=== PATIENT | male | born 1950 | race Caucasian/White ===

== ENCOUNTER 2020-02-29 16:02 | Inpatient (IN) | payer MEDICARE, SELFPAY ==
[2020-02-29] VITALS (33 sets, daily range): BP systolic 104–193; BP diastolic 50–81; PULSE 70–90; RESP 14–18; TEMP 36.8; O2SAT 96–100
--- NOTE | ~2020-02-29 | XR_ITS ---
EXAMINATION: XR surgery orthopedic EXAM DATE: 03/01/2020 15:15 INDICATION: Right hip pinning. TECHNIQUE: Fluoroscopy used during XR surgery orthopedic performed by Dr. Rob Gupta MD. The DAP for this procedure was 0.23 mGym2. FINDINGS: There are 3 lag screws fixing a right hip transcervical neck fracture. Hardware is in expe cted position. Correlate with procedure note. IMPRESSION: Fluoroscopy used during right hip fracture fixation. Reviewed, dictated and finalized at location A. ER INSTALLER
--- NOTE | ~2020-02-29 | XR_ITS ---
EXAMINATION: XR chest 1V portable INDICATION: Hypertension TECHNIQUE: Portable AP chest at 1752 hours COMPARISON: None available FINDINGS: The lungs are hyperinflated but free of acute opacities. There is no pleural effusion or pn eumothorax. The heart size is upper limits of normal for technique. Median sternotomy wires are consi stent with prior cardiac surgery IMPRESSION: 1. No acute cardiopulmonary abnormality. Reviewed, dictated and finalized at location A. IN RESTORER
--- NOTE | ~2020-02-29 | XR_ITS ---
EXAMINATION: XR hip RT 2V w AP pelvis INDICATION: Right hip pain, initial encounter TECHNIQUE: AP view the pelvis and two views of the right hip are obtained. COMPARISON: None available FINDINGS: There is an acute, traumatic, closed, subcapital fracture of the right femoral neck. The fe moral heads are well-seated in their acetabula. No additional acute fracture is identified. Surgical clips are seen in the bilateral proximal lower extremities. IMPRESSION: 1. Acute subcapital right femoral neck fracture. Reviewed, dictated and finalized at location A. SPOOLER
--- NOTE | 2020-02-29 16:20 | ED.FALL ---
HPI - Fall General Chief Complaint: Fall Stated Complaint: FALL/HIP PAIN Time Seen by Provider: 02/29/20 16:05 Source: patient and family Mode of arrival: EMS Limitations: no limitations History of Present Illness HPI Narrative: 69-year-old male History of hypertension and high cholesterol and type 2 diabetes and peripheral vascular disease He was in his garage working on his 2011 motorcycle doing its winter maintenance when he tripped over a ramp and fell on his butt injuring his right hip Nothing else injured or hurt There were no antecedent symptoms which provoked the fall He was subsequently unable to get up and walk due to pain in his right hip, although the leg does not grossly appear to be deformed Related Data Home Medications Medication Instructions Recorded Confirmed aspirin 81 mg tablet,delayed 81 mg PO DAILY 01/31/19 02/29/20 release bimatoprost 0.01 % eye drops 1 drop EACH EYE DAILY 01/31/19 02/29/20 Allergies Allergy/AdvReac Type Severity Reaction Status Date / Time venom-honey bee Allergy Severe DIFFICULTY Verified 12/16/19 10:03 BREATHING venom-wasp Allergy Severe DIFFICULTY Verified 12/16/19 10:03 BREATHING Review of Systems Constitutional: Constitutional: Denies chills and Denies fever(s) Cardiovascular: Cardiovascular: Denies chest pain Respiratory: Respiratory: Denies cough and Denies dyspnea Gastrointestinal: Gastrointestinal: Denies diarrhea and Denies vomiting Musculoskeletal: Musculoskeletal: Reports no additional musculoskeletal complaints Neurologic: Denies dizziness, Denies headache(s) and Denies weakness Hematologic/Lymphatic: Hematologic/Lymphatic: Denies easy bleeding and Denies easy bruising PMFSH Family History Family History (Updated 11/13/13 @ 07:13 by DOCTOR UNKNOWN) Other Family history of heart disease in male family member before age 55 Social History Social History (Updated 12/16/19 @ 10:04 by Elma Vizcarra) Smoking packs per day: 2.5 Smoking cigarettes per day: 50.0 Years smoked: 35 Smoking pack-years: 87.50 Smoking status: Former smoker Tobacco type: cigarettes Second hand tobacco smoke exposure: No Smoking end date: 03/19/01 Alcohol intake: never Substance use: never Substance use type: does not use Gender identity (if verbalized by the patient): Male Exam Const: General: no acute distress and alert Nutritional Appearance: well nourished Orientation/consciousness: patient oriented x3 Limitations: no limitations HENMT: Head: normal to inspection, no contusions and no hematomas Neck: Neck: normal visual inspection Other: nt Resp: Effort & Inspection: normal respiratory effort and not labored GI: Other: Nontender pelvis Skin: General skin exam: normal color Neuro: General: patient oriented x3 and no focal motor deficits Speech: normal speech Extrem: Other: Right lower extremity is not shortened or externally rotated There is pain with internal or external rotation or flexion There is tenderness over the trochanter laterally and posteriorly Dorsalis pedis pulse cannot be located, posterior tibial pulses present Psych: Affect: normal affect Course Course Emergency Course: d/w hospitalist and with dr urbina and will send consult to [facility] for preop eval Vital Signs Vital signs: Vital Signs Temperature 36.8 C 02/29/20 16:05 Pulse Rate 90 02/29/20 16:05 Respiratory Rate 18 02/29/20 16:05 Blood Pressure 193/63 H 02/29/20 16:05 Pulse Oximetry 99 02/29/20 16:05 Temperature 36.8 C 02/29/20 16:05 Pulse Rate 90 02/29/20 16:05 Respiratory Rate 18 02/29/20 16:05 Blood Pressure 161/67 H 02/29/20 16:16 Pulse Oximetry 100 02/29/20 17:15 Discharge Plan Discharge Clinical Impression: Subcapital fracture of right hip Patient Disposition: Still a Patient Condition: Stable Prescriptions: No Action [place] 0.01 % drops 1
--- NOTE | 2020-02-29 17:27 | PC.NURSE ---
patient (+) right hip fracture. waiting for further orders from provider.
--- NOTE | 2020-02-29 17:47 | ECG_ITS ---
Measurements Intervals [place] Rate: 65 P: 65 NM: 153 QRS: 51 QRSD: 84 T: 33 QT: 364 QTc: 380 Interpretive Statements SINUS RHYTHM VENTRICULAR PREMATURE COMPLEX ANTEROSEPTAL INFARCT, AGE INDETERMINATE BASELINE ARTIFACT- I, III, AVR, AVL, AVF, V3 ABNORMAL ECG Electronically Signed On 03-01-2020 6:56:39 [facility] [place] by Dustin Turner D.O.
--- NOTE | 2020-02-29 17:59 | PC.NURSE ---
EKG done. in room. patient aware of hip fracture and plain for admission.
[2020-02-29] MEDS: MORPHINE SULFATE (*CRX) 4 MG/ML INJ IV PUSH ×2 (18:04→21:40)
[2020-02-29] MEDS: LACTATED RINGERS 1,000 ML 30 ML IV CONT (18:05)
--- NOTE | 2020-02-29 18:08 | PC.NURSE ---
instrument and controls technician in room for lab draw. meds given. in room. call light in reach.
[2020-02-29 18:18] LABS: Basophils Absolute Auto 0.1 K/mm3 (0.0-0.1); Basophils Percent Auto 0.6 % (0.2-1.2); Eosinophils Absolute Auto 0.1 K/mm3 (0-0.3); Eosinophils Percent Auto 0.9 % (0-4.4); Hematocrit 44.3 % (42.0-52.0); Hemoglobin 15.3 g/dL (14.0-18.0); Immature Granulocyte Absolute 0.07 K/mm3 (0.00-0.031); Immature Granulocyte Percent A 0.4 % (0-0.5); Lymphocytes Absolute Auto 1.36 K/mm3 (0.9-3.2); Lymphocytes Percent Auto 8.6 % (18.3-44.2); Mean Corpuscular HGB Conc 34.5 g/dl (32-36); Mean Corpuscular Hemoglobin 30.7 pg (26-34); Mean Platelet Volume 10.1 fl (7.4-10.4); Monocytes Absolute Auto 0.9 K/mm3 (0.1-0.6); Monocytes Percent Auto 5.5 % (2.6-8.5); Neutrophils Absolute Auto 13.3 K/mm3 (1.3-6.7); Platelet Count Result 188 k/mm3 (150-375); Red Blood Count 4.98 M/mm3 (4.6-6.20); Red Cell Distribution Width 12.3 % (11.5-14.5); White Blood Count 15.9 K/mm3 (4.5-10.0)
[2020-02-29 18:31] LABS: Prothrombin Time 13.7 Seconds (11.1-14.7)
[2020-02-29 18:32] LABS: Anion Gap 7 mmol/L (8-16); Blood Urea Nitrogen 33 mg/dL (9-20); Calcium 10.2 mg/dL (8.4-10.2); Carbon Dioxide 30 mmol/L (22-30); Chloride 101 mmol/L (98-107); Estimated CRCL calculation 41 ml/min; Estimated Glomerular Filt Rate 43; Glucose 129 mg/dL (75-110); Potassium 4.4 mmol/L (3.4-5.0); Sodium 138 mmol/L (137-145)
--- NOTE | 2020-02-29 18:55 | PC.NURSE ---
ok to feed patient. lunch boxes given to patient and with drinks. resting on stretcher. states that the morphine is wearing off . may want pain pills.
--- NOTE | 2020-02-29 20:11 | PC.NURSE ---
patient has bed assigned upstairs. SBAR sent.
--- NOTE | 2020-02-29 20:23 | PC.NURSE ---
report given to Renuka WHITE. patient's belongings sent home with his . ashu in [facility]. denies needs prior to transfer.
--- NOTE | 2020-02-29 20:31 | ADMGEN ---
This patient, Jamaal Romano, was admitted to Medical Room 344-01. Patient/family oriented to hospital policies and general routines including ID bracelet, bed and alarms, visiting hours, pain management, procedures, bathroom and other care routines, personal items, smoking policy, room service/diet, and visiting hours. Information on how to activate the Rapid Response Team has been discussed. Patient/Family are encouraged to report perceived risks to care and to ask questions if they do not understand what they are told or what they should do.
--- NOTE | 2020-02-29 21:30 | PM.IMHP ---
H&P: HPI History of Present Illness Date/Time: 02/29/20 20:30 Chief complaint: Right hip pain after a fall. Narrative: Jamaal Romano is a 69-year-old male with coronary artery disease status post CABG, chronic kidney disease stage 3, diabetes, and hypertension who presented to the emergency department earlier today via EMS from home for evaluation of right hip pain after a fall. Not long prior to arrival he was winterizing his motorcycle in the garage when he tripped over a piece of equipment, landing onto his right side. He was unable to get himself up due to significant pain in the right hip and he was brought to the emergency department where he was found to have a right subcapital femoral neck fracture. at this time he has resting pain of 1/10 but any effort to move that right hip causes pretty severe sharp shooting pain. He denies paresthesias, skin color, and temperature changes distal to the fracture site. He reiterates that it was purely a mechanical fall and denies antecedent symptoms to provoke the fall. Review of Systems Review of Systems: Narrative: Twelve systems were reviewed with pertinent positives and negatives as per HPI. No vertigo. No lightheadedness or dizziness. He denies recent cold and flu symptoms. No fever, chills, or sweats. No exertional chest pain or shortness of breath. He had an echocardiogram within the last couple of years with Dr. Bush. Last nuclear stress test was about a decade ago and was unremarkable. No syncope or near syncope. He denies nausea, vomiting, and diarrhea. Reports that his diabetes is well controlled. No nephropathy, neuropathy, or retinopathy. Reports maturing cataracts. Up to the bathroom maybe 1 to 2 times per evening. No dysuria. No history of venous thromboembolism. Except as documented, all other systems were reviewed and are negative. [facility] Past Medical History Medical History Chronic kidney disease, stage 3 Baseline creatinine is around 1.60. Colon polyps Coronary artery disease Status post 4 vessel bypass. Erectile dysfunction Glaucoma History of kidney stones Hyperlipidemia Hypertension Osteopenia Type 2 diabetes mellitus Surgical History Surgical History History of cholecystectomy History of four vessel coronary artery bypass graft (~2001) Family History Family History (Updated 02/29/20 @ 23:14 by Maritza Nguyen PA-C) Mother Myocardial infarction Father Sibling Congestive heart failure Other Family history of heart disease in male family member before age 55 Social History Social History (Updated 02/29/20 @ 23:17 by Maritza Nguyen PA-C) Social History: The patient lives in [place] with his . 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 Former smoker, up to 2.5 packs of cigarettes per day. He quit in 2001 when he had his coronary bypass. No alcohol or illicit substance abuse. He designates his Opal Romano as his surrogate decision maker and he wishes to be a full code. Smoking packs per day: 2.5 Smoking cigarettes per day: 50.0 Years smoked: 35 Smoking pack-years: 87.50 Smoking status: Former smoker Tobacco type: cigarettes Second hand tobacco smoke exposure: No Smoking end date: 03/19/01 Alcohol intake: former Substance use: never Substance use type: does not use Living arrangements: with family Occupation/Education: retired Gender identity (if verbalized by the patient): Male Sexual Orientation (if Verbalized by the Patient): Straight or Heterosexual Spiritual care concerns: No Agree to blood products: Yes Meds Home Medications and Allergies Home Medications Medication Instructions Recorded Confirmed Type aspirin 81 mg tablet,delayed 81 mg PO HS 01/31/19 02/29/20 History release bimatoprost 0.01 % eye drops 1 drop EACH EYE HS 01/31/19 02/29/20 Hi
[2020-02-29 22:02] LABS: Glucose Point of Care 187 (65-105)
[2020-03-01] VITALS (12 sets, daily range): BP systolic 140–180; BP diastolic 53–89; PULSE 70–104; RESP 12–16; TEMP 35.9–37.4; O2SAT 92–100
[2020-03-01] MEDS: ACETAMINOPHEN 325 MG TABLET 650 MG PO ×2 (01:04→06:12)
[2020-03-01] MEDS: MORPHINE SULFATE (*CRX) 4 MG/ML INJ IV PUSH (04:34)
[2020-03-01 06:15] LABS: Hematocrit 35.1 % (42.0-52.0); Mean Corpuscular HGB Conc 34.2 g/dl (32-36); Mean Corpuscular Hemoglobin 30.2 pg (26-34); Mean Corpuscular Volume 88.2 fl (80-100); Mean Platelet Volume 10.8 fl (7.4-10.4); Platelet Count Result 156 k/mm3 (150-375); Red Blood Count 3.98 M/mm3 (4.6-6.20); Red Cell Distribution Width 12.4 % (11.5-14.5); White Blood Count 10.7 K/mm3 (4.5-10.0)
[2020-03-01 06:30] LABS: Alanine Aminotransferase 37 U/L (4-50); Albumin Level 3.5 g/dL (3.5-5.1); Alkaline Phosphatase 60 U/L (38-126); Anion Gap 5 mmol/L (8-16); Aspartate Amino Transferase 53 U/L (17-59); Bilirubin,Total 1.4 mg/dL (0.2-1.3); Blood Urea Nitrogen 28 mg/dL (9-20); Calcium 8.9 mg/dL (8.4-10.2); Carbon Dioxide 30 mmol/L (22-30); Chloride 102 mmol/L (98-107); Estimated CRCL calculation 44 ml/min; Estimated Glomerular Filt Rate 47; Glucose 118 mg/dL (75-110); Sodium 137 mmol/L (137-145)
[2020-03-01 06:36] LABS: Hemoglobin A1C 6.4 % (<5.7)
[2020-03-01 07:08] LABS: Glucose Point of Care 108 (65-105)
--- NOTE | 2020-03-01 09:15 | PM.CNCAR ---
Assessment and Plan Assessment and plan (1) Preop cardiovascular exam: Code(s): Z01.810 - Encounter for preprocedural cardiovascular examination Status: Acute Assessment and Plan: patient can perform greater than 4 mets without any anginal or heart failure symptoms. He had a recent echocardiogram which showed a normal ejection fraction without significant valvular problems. He does not need preoperative ischemic evaluation at this point. He is at [id number] risk. (2) Coronary artery disease: Code(s): I25.10 - Atherosclerotic heart disease of [place] coronary artery without angina pectoris Status: Acute Assessment and Plan: as detailed above (3) HLD (hyperlipidemia): Code(s): E78.5 - Hyperlipidemia, unspecified Status: Acute Assessment and Plan: on statin and Zetia (4) Hypertensive heart disease without congestive heart failure: Code(s): I11.9 - Hypertensive heart disease without heart failure Status: Acute Assessment and Plan: normal EF. Blood pressure is mildly elevated History of Present Illness History of Present Illness Consult date/time: 03/01/20 09:15 Requesting physician: Natalio Marin MD Consult reason: pre-op evaluation and Other (Preop) Reason For Visit: Right hip pain after a fall. Narrative: date of service 03/01/2020 Reason for consultation coronary disease and preoperative evaluation History: Patient is a 69-year-old male who slipped and fell will work on his motorcycle and broke his right hip. Cardiology consultation was requested for preoperative risk evaluation. Patient does have a history of coronary disease and 4 vessel coronary bypass grafting in 2001. He was having no symptoms but was found have multivessel CAD on a routine stress test. This eventually led to a catheterization revealing significant disease and the aforementioned for also CABG. Patient did have an echocardiogram in October 2019 which revealed normal left ventricular size and function with ejection fraction of 68% without significant valvular problems. He did have mild MR and TR. He exercises routinely about 30 minutes a day on a treadmill at 2-1/2 miles an are and he has had no CHF or anginal symptoms. He denies any chest pain, shortness breath, syncope, presyncope, paroxysmal nocturnal dyspnea, orthopnea, edema or palpitations. Review of Systems Review of Systems: All systems reviewed & are unremarkable except as noted in HPI and below Constitutional: Constitutional: Denies weakness Eyes: Eyes: Denies blurry vision ENT: Reports Normal hearing present Cardiovascular: Cardiovascular: Denies chest pain Respiratory: Respiratory: Denies dyspnea Gastrointestinal: Gastrointestinal: Denies abdominal pain Genitourinary: Genitourinary: Denies dysuria Musculoskeletal: Musculoskeletal: Reports arthralgias Integumentary/Breasts: Skin/Breast: Denies dry skin Neurologic: Denies headache(s) and Denies numbness Psychiatric: Psychiatric: Denies anxiety and Denies confusion Endocrine: Endocrine: Denies excessive sweating and Denies fatigue Hematologic/Lymphatic: Hematologic/Lymphatic: Denies easy bleeding Allergic/Immunologic: Allergic/Immunologic: Denies GI upset with certain foods PMFSH Past Medical History Medical History Chronic kidney disease, stage 3 Baseline creatinine is around 1.60. Colon polyps Coronary artery disease Status post 4 vessel bypass. Erectile dysfunction Glaucoma History of kidney stones Hyperlipidemia Hypertension Osteopenia Type 2 diabetes mellitus Surgical History Surgical History History of cholecystectomy History of four vessel coronary artery bypass graft (~2001) Family History Family History Mother Myocardial infarction Decea
--- NOTE | 2020-03-01 10:15 | PM.CNOR ---
Assessment and Plan Assessment and plan (1) Subcapital fracture of right hip: Qualifiers: Encounter type: initial encounter Fracture type: closed Qualified Code(s): S72.011A - Unspecified intracapsular fracture of right femur, initial encounter for closed fracture Code(s): S72.011A - Unspecified intracapsular fracture of right femur, initial encounter for closed fracture Status: Acute Assessment and Plan: 69-year-old gentleman with multiple medical problems with fall at home yesterday, right hip femoral neck fracture. Medical comorbidities include diabetes, coronary artery disease status post bypass, osteoporosis, renal failure, peripheral arterial disease and claudication. History, physical exam and radiographs reviewed with the patient. Discussed the condition, nature, etiology and course of natural history with the patient. Treatment options including surgical and nonoperative treatment were reviewed. Risks and benefits of each as well as alternatives reviewed. The patient's questions were answered. Conservative treatment ice and Bed rest. surgical options reviewed including reduction and internal fixation with retention of the hip joint, hemiarthroplasty, total joint arthroplasty. Surgery, risks and benefits as well as outcomes reviewed in detail. Patient's questions were answered. He has declined a hip replacement or hemiarthroplasty at this time. He wants to proceed with internal fixation. He verbalizes understanding of the risk of nonunion or malunion, avascular necrosis and the need for future treatment or surgery. Discussed nonoperative and operative treatment options with the patient. Risks and benefits of each as well as alternatives were reviewed. All of the patient's questions were answered. The risks of surgery reviewed including but not limited to: Neurovascular damage, wound complication, infection, blood clot, pulmonary embolus, stroke, myocardial infarction, and anesthetic risks up to and including . Continued pain and possible dysfunction were explained. Specific risks of the procedure including later recurrence of deformity. No guarantees were offered. If hardware used, discussed risk of failure/ breakage and possible need for removal. If complications occur, the patient understands the need for further treatment, possible further surgery. Patient verbalizes understanding and wishes to proceed. PLAN: Reduction with internal fixation right hip fracture History of Present Illness HPI Consult date: 03/01/20 Requesting physician: Natalio Marin MD Consult reason: fracture ( Right hip) Chief complaint: Right hip pain after a fall. Narrative: 69-year-old gentleman admitted through the emergency room yesterday for right hip fracture. Patient at home in his garage when he slipped and fell onto his right side. Unable to bear weight. He complains of right hip pain. Denies numbness or tingling in the lower extremities. Denies head neck or back injury at the time of his fall. Denies loss of consciousness. He has no neck or back pain at this time. He has a history of previous right hip pain which according to him upon further workup was diagnosed with claudication. He was seen by vascular surgery and was told that he has poor blood flow to both legs. He has been trying to do exercise to help with that. Previous pain was over the lateral and posterior aspect of the hip and buttock. He denies any previous groin pain. Review of Systems Constitutional: Constitutional: Denies fever(s) Eyes: Eyes: Denies blurry vision ENT: Reports Normal hearing present Cardiovascular: Cardiovascular: Denies chest pain, Denies dyspnea, Denies orthopnea and Denies paroxysmal nocturnal dyspnea Respiratory: Respiratory: Denies dyspnea and Denies wheezing Gastrointestinal: Gastrointestinal: Denies abdominal pain Genitourinary: Genitourinary: Denies urinary urgency Musculoskeletal: Musculoske
--- NOTE | 2020-03-01 10:48 | WPDHPUPDATE1 ---
History and Physical Update Update Date/Time: 03/01/20 10:48 History and Physical has been reviewed, including an updated exam of the patient. There are NO changes in the patient's condition. Risks, benefits, and alternatives have been discussed and questions answered. Patient agrees to proceed with procedure.
--- NOTE | 2020-03-01 11:21 | PM.IMPN ---
Progress Note: A&P Assessment and Plan (1) Subcapital fracture of right hip: Qualifiers: Encounter type: initial encounter Fracture type: closed Qualified Code(s): S72.011A - Unspecified intracapsular fracture of right femur, initial encounter for closed fracture Code(s): S72.011A - Unspecified intracapsular fracture of right femur, initial encounter for closed fracture Status: Acute Assessment and Plan: Secondary to mechanical fall. Hip x-ray showed acute subcapital right femoral neck fracture. Pain is fairly well controlled at this time. Orthopedic surgery is following and plans for surgical repair today. Weight-bearing and DVT prophylaxis per Orthopedic surgery. PT and OT will be initiated following surgery. Will check vitamin-D level. Analgesics as needed for pain. (2) Leukocytosis: Code(s): D72.829 - Elevated white blood cell count, unspecified Status: Acute Assessment and Plan: [place] to be reactive secondary to trauma from fall. Significant improvement overnight and white count is essentially normalized at 10.7. No history to suggest underlying infection. Monitor CBC. (3) Chronic kidney disease, stage 3: Code(s): N18.30 - Chronic kidney disease, stage 3 unspecified Status: Inactive Assessment and Plan: Renal function is stable on review of previous labs. Creatinine is 1.5 today. Monitor renal function closely. Renally dose medications and avoid nephrotoxic agents. (4) Coronary artery disease: Code(s): I25.10 - Atherosclerotic heart disease of [place] coronary artery without angina pectoris Status: Acute Assessment and Plan: Patient has extensive cardiac history including CABG in 2001 and known multivessel CAD. He was evaluated by Cardiology for preop exam and felt the patient was a low to moderate risk for noncardiac surgery. His oral medications are on hold at this time and will be resumed as appropriate postoperatively (5) Type 2 diabetes mellitus: Code(s): E11.9 - Type 2 diabetes mellitus without complications Status: Inactive Assessment and Plan: A1c is 6.4. Blood sugars well controlled today. Continue Accu-Cheks a.c. HS, SSI, and hypoglycemia protocol Monitor blood sugar trends and adjust regimen as appropriate. His oral hypoglycemic agent is on hold at this time. (6) Hypertension: Code(s): I10 - Essential (primary) hypertension Status: Inactive Assessment and Plan: Blood pressure evaluated today and is stable at 140/53. Blood pressures have been just slightly elevated, likely secondary to pain. Lisinopril-hydrochlorothiazide is on hold at this time. IV hydralazine will be available as needed while NPO. Monitor blood pressure trends closely (7) Hyperlipidemia: Code(s): E78.5 - Hyperlipidemia, unspecified Status: Inactive Assessment and Plan: Atorvastatin and Zetia on hold at this time. Resume when clinically appropriate. Subjective Date/time seen: 03/01/20 11:21 Interval history: Date of service: 03/01/2020 Jamaal Romano is a 61-year-old male with history of CKD stage 3, CAD hyperlipidemia, hypertension, type 2 DM who is in follow-up for right hip fracture. He is doing well at this time. His pain is better controlled. He is currently rating his right hip pain as a 6/10 that he describes as a constant aching with occasional episodes of sharp shooting pain. He also note that his knee is a little uncomfortable just from the position that his leg has been in. He denies numbness or tingling in legs or feet. Otherwise he is doing well. He denies shortness of breath, cough chest pain, fever, chills, dizziness, lightheadedness, abdominal pain. He feels very thirsty but is NPO for surgery. He has been urinating without difficulty. Last bowel movement was yesterday. No additional concerns at this time. Review of Sys
[2020-03-01 11:31] LABS: Glucose Point of Care 130 (65-105)
[2020-03-01] MEDS: LACTATED RINGERS 1,000 ML 30 ML IV CONT (13:30)
--- NOTE | 2020-03-01 13:39 | WPDANESEPPF ---
Anes - Initial Pre Proc Eval Procedure: Operation Date: 03/01/20 14:30 Proposed Procedures p Right Hip Pinning - Rob Gupta MD Date/Time: 03/01/20 13:39 Surgeon: Raheem Rao MD Pre Op Diagnosis: Right hip pain after a fall. Patient Data Age: 69 Gender: M Height: 1.78 m Weight: 77.2 kg Last Vital Signs Temp 37.4 C 03/01/20 13:38 Pulse 70 03/01/20 13:38 Resp 16 03/01/20 13:38 BP 154/56 H 03/01/20 13:38 Pulse Ox 98 03/01/20 13:38 Allergies Allergy/AdvReac Type Severity Reaction Status Date / Time venom-honey bee Allergy Severe DIFFICULTY Verified 02/29/20 21:09 BREATHING venom-wasp Allergy Severe DIFFICULTY Verified 02/29/20 21:09 BREATHING Home Medications Medication Instructions Recorded Confirmed Type aspirin 81 mg tablet,delayed 81 mg PO HS 01/31/19 02/29/20 History release bimatoprost 0.01 % eye drops 1 drop EACH EYE HS 01/31/19 02/29/20 History metformin 500 mg tablet,extended 1,000 mg PO QPM #180 tablet 11/19/19 02/29/20 Rx release 24 hr atorvastatin 10 mg PO HS 02/29/20 02/29/20 History ezetimibe [Zetia] 10 mg PO HS 02/29/20 02/29/20 History lisinopril-hydrochlorothiazide 1 tablet PO HS 02/29/20 02/29/20 History Laboratory Tests 02/29/20 02/29/20 02/29/20 18:11 18:11 18:11 WBC 15.9 K/mm3 H K/mm3 (4.5-10.0) RBC 4.98 M/mm3 M/mm3 (4.6-6.20) Hgb 15.3 g/dL g/dL (14.0-18.0) Hct 44.3 % % (42.0-52.0) MCV 89.0 fl fl (80-100) MCH 30.7 pg pg (26-34) MCHC 34.5 g/dl g/dl (32-36) RDW 12.3 % % (11.5-14.5) Plt Count 188 k/mm3 k/mm3 (150-375) MPV 10.1 fl fl (7.4-10.4) Immature Gran % (Auto) 0.4 % % (0-0.5) Neut % (Auto) 84.0 % H % (45.5-73.1) Lymph % (Auto) 8.6 % L % (18.3-44.2) Piatt % (Auto) 5.5 % % (2.6-8.5) Eos % (Auto) 0.9 % % (0-4.4) Baso % (Auto) 0.6 % % (0.2-1.2) Lymph # (Auto) 1.36 K/mm3 K/mm3 (0.9-3.2) [place]att # (Auto) 0.9 K/mm3 H K/mm3 (0.1-0.6) Eos # (Auto) 0.1 K/mm3 K/mm3 (0-0.3) Baso # (Auto) 0.1 K/mm3 K/mm3 (0.0-0.1) Abs Immat Gran (auto) 0.07 K/mm3 H K/mm3 (0.00-0.031) Absolute Neuts (auto) 13.3 K/mm3 H K/mm3 (1.3-6.7) Absolute Nucleated RBC 0.0 K/mm3 K/mm3 (0.0-0.012) Nucleated RBC % 0.0 % % (0.0-0.2) PT 13.7 Seconds Seconds (11.1-14.7) INR 1.0 Sodium 138 mmol/L mmol/L (137-145) Potassium 4.4 mmol/L mmol/L (3.4-5.0) Chloride 101 mmol/L mmol/L (98-107) Carbon Dioxide 30 mmol/L mmol/L (22-30) Anion Gap 7 mmol/L L mmol/L (8-16) BUN 33 mg/dL H mg/dL (9-20) Creatinine 1.60 mg/dL H mg/dL (0.7-1.3) Estim Creat Clear Calc 41 ml/min ml/min Estimated GFR 43 L (59 - ) Glucose 129 mg/dL H mg/dL (75-110) POC Capillary Glucose Hemoglobin A1c Calcium 10.2 mg/dL mg/dL (8.4-10.2) Total Bilirubin AST ALT Alkaline Phosphatase Total Protein Albumin Blood Type Antibody Screen 02/29/20 02/29/20 03/01/20 18:11 21:56 05:22 WBC 10.7 K/mm3 H K/mm3 (4.5-10.0) RBC 3.98 M/mm3 L M/mm3 (4.6-6.20) Hgb 12.0 g/dL L D g/dL (14.0-18.0) Hct 35.1 % L % (42.0-52.0) MCV 88.2 fl fl (80-100) MCH 30.2 pg pg (26-34) MCHC 34.2 g/dl g/dl (32-36) RDW 12.4 % % (11.5-14.5) Plt Count 156 k/mm3 k/mm3 (150-375) MPV 10.8 fl H fl (7.4-10.4) Immature Gran % (Auto) Neut % (Auto) Lymph % (Auto) Piatt % (Auto) Eos % (Auto) Baso % (Auto) Lymph # (Au
[2020-03-01] MEDS: ACETAMINOPHEN 500 MG TABLET 1000 MG PO (13:41)
[2020-03-01] MEDS: TRANEXAMIC ACID 1,000MG/ISO100 1,000 MG/100 ML BAG 200 MG IVPB (13:54)
[2020-03-01] MEDS: ceFAZolin 2 GM/D5W 50 ML 2 GM/50 ML BAG IVPB (14:22)
[2020-03-01] MEDS: BUPIVACAINE/EPINEPHRINE 0.25% 10 ML VIAL INFILTRATE (14:48)
--- NOTE | 2020-03-01 15:35 | P.OP_ITS ---
Procedure Note - Detailed Date of procedure: 03/01/20 Pre-op diagnosis: Right hip pain after a fall. Right femoral neck fracture Post-op diagnosis: same Procedure performed: Closed reduction percutaneous pin fixation right femoral neck fracture Description of procedure: Indications: 69-year-old man witnessed fall onto right hip. Right hip femoral neck fracture. Patient discussed treatment options with surgery and non operative treatment including risks and benefits. They desire operative treatment. Option of hemiarthroplasty or total hip arthroplasty discussed in detail with the patient. He has declined hip replacement. He desires attempt at retention [place] hip joint. Patient consents for reduction with internal fixation. Implants used: Tameka 8.0 millimeter cannulated screw x3 What was done: Informed consent signed. Extremity marked in preoperative holding area. Patient received intravenous antibiotics. Brought to operating room and underwent general anesthetic by the Anesthesia Team. Positioned supine on the fracture table. Right leg placed into longitudinal traction. Left leg extended out of field. Image intensification brought in and confirm reduction of fracture. Right hip prepped and draped in usual sterile surgical fashion using ChloraPrep skin solution. Image intensification used to guide the starting position and a longitudinal incision made with 10 blade knife over the lateral proximal femur. Blunt dissection carried down to the lateral femur. Bleeding controlled with electrocautery. First guide pin placed in the inferior center position of the femoral neck and head. Confirmed with image intensification. Two subsequent pins placed superior and anterior and superior and posterior to the 1st pin to create an inverted triangle type pattern. Pins confirmed with image intensification. Length of screw measured, reaming performed. Appropriate size screw placed with good compression and fixation noted for all 3 pins. Guide pins removed. Final image intensification confirmed reduction of fracture and placement of hardware. Wound thoroughly irrigated with antibiotic solution. Fascia repaired with 2 Vicryl interrupted sutures. Subcutaneous tissue repaired with 3 0 Monocryl interrupted suture. Sterile dressing applied. Patient woken from anesthesia, extubated and returned to recovery room in stable condition. All sponge needle and instrument counts correct at the end of the case. Implants: Tameka 8.0 mm partially-threaded cannulated screw 100 mm, 95 mm, 95 mm length Anesthesia: GLMA Surgeon: Rob Gupta MD Combat Control Manager: 1st operations administrative assistant Estimated blood loss (mL): 20 Tourniquet time (min): 0 Drains: No Packing: No Pathology: none sent Complications: None Condition: stable Disposition: PACU
[2020-03-01 15:50] LABS: Glucose Point of Care 124 (65-105)
[2020-03-01] MEDS: fentaNYL CITRATE INJ (*CRX) 100 MCG/2 ML VIAL 25 MCG IV PUSH (16:19)
[2020-03-01] MEDS: metFORMIN HCL XR 500 MG TAB.SR.24H 1000 MG PO (17:13)
[2020-03-01] MEDS: DOCUSATE SODIUM 100 MG CAPSULE PO (17:14)
[2020-03-01 18:05] LABS: Glucose Point of Care 151 (65-105)
[2020-03-01] MEDS: HYDROcodone/acetaminophen (*CRX) 7.5-325 MG TABLET 1 TAB PO ×2 (18:49→21:51)
[2020-03-01] MEDS: hydrALAZINE HCL 20 MG/ML VIAL 10 MG IV PUSH (18:49)
[2020-03-01 20:07] LABS: Glucose Point of Care 199 (65-105)
[2020-03-01] MEDS: LATANOPROST 0.005% OP SOLN 2.5 ML BTL 1 DROP EACH EYE (20:54)
[2020-03-01] MEDS: ATORVASTATIN 10 MG TABLET PO (20:55)
[2020-03-01] MEDS: EZETIMIBE 10 MG TABLET PO (20:55)
[2020-03-01] MEDS: hydroCHLOROthiazide 12.5 MG CAPSULE PO (20:55)
[2020-03-01] MEDS: ASPIRIN 81 MG ENTERIC TABLET PO (20:55)
[2020-03-01] MEDS: lisinopriL 20 MG TABLET PO (20:55)
[2020-03-02 06:09] LABS: Hematocrit 36.2 % (42.0-52.0); Hemoglobin 12.4 g/dL (14.0-18.0); Mean Corpuscular HGB Conc 34.3 g/dl (32-36); Mean Corpuscular Hemoglobin 30.1 pg (26-34); Mean Corpuscular Volume 87.9 fl (80-100); Mean Platelet Volume 10.3 fl (7.4-10.4); Platelet Count Result 153 k/mm3 (150-375); Red Blood Count 4.12 M/mm3 (4.6-6.20); Red Cell Distribution Width 12.3 % (11.5-14.5); White Blood Count 12.8 K/mm3 (4.5-10.0)
[2020-03-02 06:27] LABS: Anion Gap 9 mmol/L (8-16); Blood Urea Nitrogen 24 mg/dL (9-20); Calcium 8.7 mg/dL (8.4-10.2); Carbon Dioxide 25 mmol/L (22-30); Chloride 102 mmol/L (98-107); Estimated CRCL calculation 44 ml/min; Estimated Glomerular Filt Rate 47; Glucose 158 mg/dL (75-110); Potassium 4.5 mmol/L (3.4-5.0); Sodium 136 mmol/L (137-145)
[2020-03-02] MEDS: HYDROcodone/acetaminophen (*CRX) 7.5-325 MG TABLET 1 TAB PO ×2 (06:28→17:33)
[2020-03-02 06:38] VITALS: BP 149/59; PULSE 83; RESP 14; TEMP 37.2; O2SAT 96
[2020-03-02 06:38] LABS: Glucose Point of Care 143 (65-105)
[2020-03-02 07:26] LABS: Vitamin D 25 Hydroxy 71.5 ng/mL
[2020-03-02] MEDS: DOCUSATE SODIUM 100 MG CAPSULE PO ×2 (09:18→17:34)
--- NOTE | 2020-03-02 09:39 | PM.PNCARD ---
Progress Note: A&P Assessment and Plan (1) Preop cardiovascular exam: Code(s): Z01.810 - Encounter for preprocedural cardiovascular examination Status: Acute Assessment and Plan: Post closed reduction percutaneous pin fixation right femoral neck fracture 03/01/2020 . (2) Coronary artery disease: Qualifiers: Coronary Disease-Associated Artery/Lesion type: [place] artery [place] vs. transplanted heart: [place] heart Associated angina: without angina Qualified Code(s): I25.10 - Atherosclerotic heart disease of [place] coronary artery without angina pectoris Code(s): I25.10 - Atherosclerotic heart disease of [place] coronary artery without angina pectoris Status: Acute Assessment and Plan: No chest discomfort or shortness of breath. Continue home medications (3) HLD (hyperlipidemia): Qualifiers: Hyperlipidemia type: unspecified Qualified Code(s): E78.5 - Hyperlipidemia, unspecified Code(s): E78.5 - Hyperlipidemia, unspecified Status: Acute Assessment and Plan: On statin and Zetia (4) Hypertensive heart disease without congestive heart failure: Code(s): I11.9 - Hypertensive heart disease without heart failure Status: Acute Assessment and Plan: Normal EF. Blood pressure is mildly elevated Medications as above Additional Plan No further cardiac recommendations Cardiology will sign off. Please do not hesitate to call if we can be of further assistance. Keep previously scheduled appointment with Dr Harrison Subjective Date/time seen: 03/02/20 09:39 Interval history: Follow up for: history of CAD/CABG, hyperlipidemia, hypertension Date of service: 03/02/2020 Subjective: Denies chest discomfort, shortness of breath, lightheadedness or nausea. Hip discomfort only with movement Review of Systems Constitutional: Constitutional: Denies excessive sweating, Denies fatigue, Denies headache(s) and Denies weakness Eyes: Eyes: Denies blurry vision ENT: Reports Normal hearing present and Denies headache(s) Cardiovascular: Cardiovascular: Denies chest pain and Denies dyspnea Respiratory: Respiratory: Denies dyspnea Gastrointestinal: Gastrointestinal: Denies abdominal pain Genitourinary: Genitourinary: Denies dysuria Musculoskeletal: Musculoskeletal: Reports arthralgias and Denies numbness Integumentary/Breasts: Skin/Breast: Denies dry skin Neurologic: Reports Normal hearing present, Denies headache(s), Denies numbness and Denies weakness Psychiatric: Psychiatric: Denies anxiety Endocrine: Endocrine: Denies excessive sweating and Denies fatigue Hematologic/Lymphatic: Hematologic/Lymphatic: Denies easy bleeding Allergic/Immunologic: Allergic/Immunologic: Denies GI upset with certain foods Exam Narrative: Exam Narrative: Alert and oriented, up in chair. No distress. Pleasant and appropriate Const: General: cooperative, comfortable and no acute distress Nutritional Appearance: average body habitus Orientation/consciousness: patient oriented x3 HENMT: General nose exam: Normal nares present Eyes: Sclera: sclerae normal Neck: Neck: supple Resp: Auscultation: clear to auscultation bilaterally Cardio: Rate: regular rate Rhythm: regular rhythm GI: GI Palp: Yes Soft to palpation Auscultation: normal bowel sounds Urinary Catheter: Urinary Catheter: patent and draining and urine clear Skin: General skin exam: normal color Neuro: Cranial nerves: Yes Normal hearing present Cognition (Neuro): normal cognition Speech: normal speech Extrem: General: no edema Psych: Appearance: grossly normal Mental Status: mental status grossly normal Speech and movement: Normal speech and movement present Affect: normal affect Attitude: cooperative Thought process: Normal thought proces
--- NOTE | 2020-03-02 10:51 | P.PNIM_ITS ---
Progress Note: A&P Assessment and Plan (1) Subcapital fracture of right hip: Qualifiers: Encounter type: initial encounter Fracture type: closed Qualified Code(s): S72.011A - Unspecified intracapsular fracture of right femur, initial encounter for closed fracture Code(s): S72.011A - Unspecified intracapsular fracture of right femur, initial encounter for closed fracture Status: Acute Assessment and Plan: Secondary to mechanical fall. Hip x-ray showed acute subcapital right femoral neck fracture. He is s/p closed reduction percutaneous pin fixation by Dr. Gupta. He is doing very well post-op and worked with PT and did well. * Weight-bearing and DVT prophylaxis per Orthopedic surgery. He is on xarelto. * Agree with PT/OT * Vitamin D level is sufficient * Analgesics as needed for pain. * Recommend DEXA outpatient per PCP (2) Leukocytosis: Code(s): D72.829 - Elevated white blood cell count, unspecified Status: Acute Assessment and Plan: [place] to be reactive secondary to trauma from fall. WBC has increased minimally to 12,800, likely leukemoid reaction due to surgery. There is no evidence of acute infection. * Monitor CBC. (3) Chronic kidney disease, stage 3: Code(s): N18.30 - Chronic kidney disease, stage 3 unspecified Status: Inactive Assessment and Plan: Renal function is stable on review of previous labs. Creatinine is 1.5. * Monitor renal function closely. Renally dose medications and avoid nephrotoxic agents. (4) Coronary artery disease: Qualifiers: Coronary Disease-Associated Artery/Lesion type: [place] artery [place] vs. transplanted heart: [place] heart Associated angina: without angina Qualified Code(s): I25.10 - Atherosclerotic heart disease of [place] coronary artery without angina pectoris Code(s): I25.10 - Atherosclerotic heart disease of [place] coronary artery without angina pectoris Status: Acute Assessment and Plan: Patient has extensive cardiac history including CABGx4 in 2001 and known multivessel CAD. * He was evaluated by Cardiology for preop exam and felt to be low to moderate risk for noncardiac surgery. * Continue ASA and atorvastatin (5) Type 2 diabetes mellitus: Code(s): E11.9 - Type 2 diabetes mellitus without complications Status: Inactive Assessment and Plan: A1c is 6.4. Blood sugars well controlled today. Will hold metformin while inpatient. * Continue Accu-Cheks a.c. HS, SSI, and hypoglycemia protocol * Monitor blood sugar trends and adjust regimen as appropriate. (6) Hypertension: Code(s): I10 - Essential (primary) hypertension Status: Inactive Assessment and Plan: Blood pressures are reasonably controlled today with most recent BP of 149/59. Prior BP elevations were likely secondary to pain. * Continue lisinopril-hydrochlorothiazide * Monitor blood pressure trends closely (7) Hyperlipidemia: Code(s): E78.5 - Hyperlipidemia, unspecified Status: Inactive Assessment and Plan: * Continue atorvastatin and Zetia. Subjective Date/time seen: 03/02/20 10:51 Mr. Romano is a 61 y.o. male with PMH significant for CKD stage 3, CAD s/p CABGx4, hyperlipidemia, hypertension, and T2DM who is seen in follow-up for right hip fracture s/p closed reduction and percutaneous pin fixation 03/01/[address] Gupta. He is doing very well post-operatively. His pain is
--- NOTE | 2020-03-02 10:51 | PM.IMPN ---
Progress Note: A&P Assessment and Plan (1) Subcapital fracture of right hip: Qualifiers: Encounter type: initial encounter Fracture type: closed Qualified Code(s): S72.011A - Unspecified intracapsular fracture of right femur, initial encounter for closed fracture Code(s): S72.011A - Unspecified intracapsular fracture of right femur, initial encounter for closed fracture Status: Acute Assessment and Plan: Secondary to mechanical fall. Hip x-ray showed acute subcapital right femoral neck fracture. He is s/p closed reduction percutaneous pin fixation by Dr. Gupta. He is doing very well post-op and worked with PT and did well. Weight-bearing and DVT prophylaxis per Orthopedic surgery. He is on xarelto. Agree with PT/OT Vitamin D level is sufficient Analgesics as needed for pain. Recommend DEXA outpatient per PCP (2) Leukocytosis: Code(s): D72.829 - Elevated white blood cell count, unspecified Status: Acute Assessment and Plan: [place] to be reactive secondary to trauma from fall. WBC has increased minimally to 12,800, likely leukemoid reaction due to surgery. There is no evidence of acute infection. Monitor CBC. (3) Chronic kidney disease, stage 3: Code(s): N18.30 - Chronic kidney disease, stage 3 unspecified Status: Inactive Assessment and Plan: Renal function is stable on review of previous labs. Creatinine is 1.5. Monitor renal function closely. Renally dose medications and avoid nephrotoxic agents. (4) Coronary artery disease: Qualifiers: Coronary Disease-Associated Artery/Lesion type: [place] artery [place] vs. transplanted heart: [place] heart Associated angina: without angina Qualified Code(s): I25.10 - Atherosclerotic heart disease of [place] coronary artery without angina pectoris Code(s): I25.10 - Atherosclerotic heart disease of [place] coronary artery without angina pectoris Status: Acute Assessment and Plan: Patient has extensive cardiac history including CABGx4 in 2001 and known multivessel CAD. He was evaluated by Cardiology for preop exam and felt to be low to moderate risk for noncardiac surgery. Continue ASA and atorvastatin (5) Type 2 diabetes mellitus: Code(s): E11.9 - Type 2 diabetes mellitus without complications Status: Inactive Assessment and Plan: A1c is 6.4. Blood sugars well controlled today. Will hold metformin while inpatient. Continue Accu-Cheks a.c. HS, SSI, and hypoglycemia protocol Monitor blood sugar trends and adjust regimen as appropriate. (6) Hypertension: Code(s): I10 - Essential (primary) hypertension Status: Inactive Assessment and Plan: Blood pressures are reasonably controlled today with most recent BP of 149/59. Prior BP elevations were likely secondary to pain. Continue lisinopril-hydrochlorothiazide Monitor blood pressure trends closely (7) Hyperlipidemia: Code(s): E78.5 - Hyperlipidemia, unspecified Status: Inactive Assessment and Plan: Continue atorvastatin and Zetia. Subjective Date/time seen: 03/02/20 10:51 Mr. Romano is a 61 y.o. male with PMH significant for CKD stage 3, CAD s/p CABGx4, hyperlipidemia, hypertension, and T2DM who is seen in follow-up for right hip fracture s/p closed reduction and percutaneous pin fixation 03/01/[address] Gupta. He is doing very well post-operatively. His pain is well-controlled with norco and he notes he is only having pain with movement. He has no numbness/paresthesias distal to operative site. He notes that ROM is good. He ambulated with PT today and sat in the chair and did very well. His santamaria was just removed. He has not voided yet. He is passing flatus but has not had any bowel movements yet. He has no complaints of chest pain, dyspnea, or cough. He is tolerating his diet well with no complaints of nausea, vomiting, o
--- NOTE | 2020-03-02 11:03 | WPDANESPN ---
Anes - Prog Note Post-Op Date/Time: 03/02/20 11:03 Cardiovascular status: normal Respiratory status: normal Airway patency: baseline Mental status: baseline Post-Op hydration status: normal Vital Signs: Last Vital Signs Temp 37.2 C 03/02/20 06:38 Pulse 83 03/02/20 06:38 Resp 14 03/02/20 06:38 BP 149/59 H 03/02/20 06:38 Pulse Ox 96 03/02/20 06:38 Pain Score (VAS): 0 I/O: Intake & Output 03/01/20 03/02/20 03/02/20 23:59 07:59 15:59 Intake Total 640 450 240 Output Total 180 Balance 460 450 240 Laboratory Tests 03/02/20 05:54 03/02/20 05:54 03/01/20 03/01/20 03/01/20 11:14 15:40 17:12 WBC RBC Hgb Hct MCV MCH MCHC RDW Plt Count MPV Sodium Potassium Chloride Carbon Dioxide Anion Gap BUN Creatinine Estim Creat Clear Calc Estimated GFR Glucose POC Capillary Glucose 130 H 124 H 151 H Calcium Vitamin D 25-Hydroxy 03/01/20 03/02/20 03/02/20 20:03 05:54 05:54 WBC 12.8 H RBC 4.12 L Hgb 12.4 L Hct 36.2 L MCV 87.9 MCH 30.1 MCHC 34.3 RDW 12.3 Plt Count 153 MPV 10.3 Sodium 136 L Potassium 4.5 Chloride 102 Carbon Dioxide 25 Anion Gap 9 BUN 24 H Creatinine 1.50 H Estim Creat Clear Calc 44 Estimated GFR 47 L Glucose 158 H POC Capillary Glucose 199 H Calcium 8.7 Vitamin D 25-Hydroxy 03/02/20 03/02/20 05:54 06:35 WBC RBC Hgb Hct MCV MCH MCHC RDW Plt Count MPV Sodium Potassium Chloride Carbon Dioxide Anion Gap BUN Creatinine Estim Creat Clear Calc Estimated GFR Glucose POC Capillary Glucose 143 H Calcium Vitamin D 25-Hydroxy 71.5 Post-procedural complaints: none Patient Feedback: Patient satisfied with anesthetic care.
--- NOTE | 2020-03-02 13:27 | PM.PNORT ---
Progress Note: A&P Assessment and Plan (1) Subcapital fracture of right hip: Qualifiers: Encounter type: subsequent encounter Fracture type: closed Fracture healing: with routine healing Qualified Code(s): S72.011D - Unspecified intracapsular fracture of right femur, subsequent encounter for closed fracture with routine healing Code(s): S72.011A - Unspecified intracapsular fracture of right femur, initial encounter for closed fracture Status: Acute Assessment and Plan: Postoperative day 1 right hip pinning. Patient is stable postoperatively. Pain well controlled. PT/ OT with toe-touch weight-bearing. Incentive spirometer. Disposition based on ability with therapy once medically stable. Subjective Subjective Date/Time Seen: 03/02/20 08:05 patient awake and alert. Complains of right hip pain but states better than pain before surgery. Denies numbness or tingling. No problems eating or breathing. Exam Const: General: No confusion Orientation/consciousness: patient oriented x3 and No confusion HENMT: Head: normal to inspection, normocephalic and atraumatic Eyes: Conjunctivae: conjunctivae normal Sclera: sclerae normal Neck: Neck: supple and nontender Chest: Chest palpation & inspection: normal inspection of the chest Resp: Effort & Inspection: normal respiratory effort and no audible wheezes Cardio: Rate: regular rate Rhythm: regular rhythm GI: GI Palp: No abdominal tenderness and Yes Soft to palpation : General: Yes deferred Skin: General skin exam: no rashes or lesions noted Neuro: General: patient oriented x3 and No confusion Extrem: General: capillary refill normal Right upper extremity: normal to inspection Left upper extremity: normal to inspection Right lower extremity: hip/thigh Details: tenderness Location: of the hip Location: laterally, swelling Location: at the hip ( mild) and other ( Right hip incision clean dry and intact. Muscle soft.), ankle ( able to actively flex and extend ankle) Details: no tenderness and foot Details: normal capillary refill, toes with normal ROM, vascular exam Details: normal capillary refill; dorsalis pedis pulse absent and posterior tibial pulse absent and motor-sensory exam Details: light-touch normal Location: in all toes; no tenderness Left lower extremity: normal to inspection, hip/thigh Details: no tenderness and no swelling, lower leg, ankle (no calf tenderness) Details: normal ROM; no tenderness and foot Details: normal capillary refill, vascular exam Details: normal capillary refill; dorsalis pedis pulse absent and posterior tivial pulse absent and motor-sensory exam light-touch normal in all toes Psych: Affect: normal affect Objective Data Vital Signs Vital Signs: Vital Signs - 24 hr 03/01/20 13:38 03/01/20 15:29 03/01/20 15:40 Temperature 99.3 F 97.8 F Pulse Rate 70 104 H 86 Respiratory Rate 16 14 14 Blood Pressure 154/56 H 180/84 H 166/79 H Pulse Oximetry 98 100 100 03/01/20 15:55 03/01/20 16:10 03/01/20 16:20 Temperature Pulse Rate 98 84 82 Respiratory Rate 15 15 12 Blood Pressure 170/78 H 155/74 H 163/77 H Pulse Oximetry 100 94 94 03/01/20 17:00 03/01/20 17:15 03/01/20 17:45 Temperature 96.7 F L 96.8 F L 96.7 F L Pulse Rate 76 81 73 Respiratory Rate 16 16 16 Blood Pressure 153/65 H 153/89 H 161/62 H Pulse Oximetry 92 95 95 03/01/20 19:05 03/01/20 20:49 03/02/20 06:38 Temperature 96.9 F L 97.8 F 98.9 F Pulse Rate 70 86 83 Respiratory Rate 16 14 14 Blood Pressure 177/64 H 167/65 H 149/59 H Pulse Oximetry 96 95 96 Intake/Output Intake/Output: Intake & Output 02/28/20 02/29/20 03/01/20 03/02/20 23:59 23:59 23:59 23:59 Intake Total 1000 790 930 Output Total 530 Balance 1000 260 930 Meds/Results Medications: Active Medications Generic Name Dose Route Start Last Admin Trade Name Freq PRN Reason Stop Dose Admin Acetaminophen 650 mg 02/29/20 17:56 03/01/20 0
[2020-03-02] MEDS: ACETAMINOPHEN 325 MG TABLET 650 MG PO (14:14)
[2020-03-02 14:26] LABS: Glucose Point of Care 167 (65-105)
[2020-03-02 15:15] VITALS: BP 148/66; PULSE 72; RESP 16; TEMP 36.8; O2SAT 97
[2020-03-02] MEDS: BENZOCAINE/MENTHOL (*BKC) 18 EA LOZENGE 1 LOZENGE PO (16:28)
[2020-03-02] MEDS: RIVAROXABAN 10 MG TABLET PO (17:34)
[2020-03-02 18:30] LABS: Glucose Point of Care 134 (65-105)
[2020-03-02 19:45] LABS: Glucose Point of Care 149 (65-105)
[2020-03-02 20:19] VITALS: BP 147/64; PULSE 81; RESP 14; TEMP 36.8; O2SAT 97
[2020-03-02] MEDS: hydroCHLOROthiazide 12.5 MG CAPSULE PO (20:22)
[2020-03-02] MEDS: LATANOPROST 0.005% OP SOLN 2.5 ML BTL 1 DROP EACH EYE (20:22)
[2020-03-02] MEDS: lisinopriL 20 MG TABLET PO (20:22)
[2020-03-02] MEDS: ATORVASTATIN 10 MG TABLET PO (20:22)
[2020-03-02] MEDS: ASPIRIN 81 MG ENTERIC TABLET PO (20:22)
[2020-03-02] MEDS: EZETIMIBE 10 MG TABLET PO (20:22)
[2020-03-03] MEDS: HYDROcodone/acetaminophen (*CRX) 7.5-325 MG TABLET 1 TAB PO ×4 (00:01→13:59)
[2020-03-03] MEDS: ACETAMINOPHEN 325 MG TABLET 650 MG PO (03:33)
[2020-03-03] MEDS: BENZOCAINE/MENTHOL (*BKC) 18 EA LOZENGE 1 LOZENGE PO (03:34)
[2020-03-03 05:40] VITALS: BP 136/62; PULSE 74; RESP 16; TEMP 36.7; O2SAT 96
[2020-03-03 06:01] LABS: Hematocrit 36.5 % (42.0-52.0); Hemoglobin 12.3 g/dL (14.0-18.0); Mean Corpuscular HGB Conc 33.7 g/dl (32-36); Mean Corpuscular Hemoglobin 30.4 pg (26-34); Mean Corpuscular Volume 90.1 fl (80-100); Mean Platelet Volume 10.4 fl (7.4-10.4); Platelet Count Result 143 k/mm3 (150-375); Red Blood Count 4.05 M/mm3 (4.6-6.20); Red Cell Distribution Width 12.6 % (11.5-14.5); White Blood Count 11.3 K/mm3 (4.5-10.0)
[2020-03-03 06:25] LABS: Anion Gap 8 mmol/L (8-16); Blood Urea Nitrogen 36 mg/dL (9-20); Calcium 9.1 mg/dL (8.4-10.2); Carbon Dioxide 30 mmol/L (22-30); Chloride 98 mmol/L (98-107); Estimated CRCL calculation 41 ml/min; Estimated Glomerular Filt Rate 43; Glucose 126 mg/dL (75-110); Magnesium 1.8 mg/dL (1.6-2.3); Potassium 4.3 mmol/L (3.4-5.0); Sodium 136 mmol/L (137-145)
[2020-03-03 06:51] LABS: Glucose Point of Care 120 (65-105)
[2020-03-03] MEDS: DOCUSATE SODIUM 100 MG CAPSULE PO (09:11)
[2020-03-03 11:26] LABS: Glucose Point of Care 140 (65-105)
--- NOTE | 2020-03-03 13:27 | PM.PNORT ---
Progress Note: A&P Assessment and Plan (1) Subcapital fracture of right hip: Qualifiers: Encounter type: subsequent encounter Fracture healing: with routine healing Fracture type: closed Qualified Code(s): S72.011D - Unspecified intracapsular fracture of right femur, subsequent encounter for closed fracture with routine healing Code(s): S72.011A - Unspecified intracapsular fracture of right femur, initial encounter for closed fracture Status: Acute Assessment and Plan: Postoperative day 2 right hip pinning. Patient is stable postoperatively. Pain well controlled. PT/ OT with toe-touch weight-bearing. Cleared for discharge home. Incentive spirometer. Follow up orthopedics approximately 4 weeks. Subjective Subjective Date/Time Seen: 03/03/20 12:30 Awake and alert. No new complaints. Right hip pain well controlled. Some pain with motion. Exam Const: General: No confusion Orientation/consciousness: patient oriented x3 and No confusion HENMT: Head: normal to inspection, normocephalic and atraumatic Eyes: Conjunctivae: conjunctivae normal Sclera: sclerae normal Neck: Neck: supple and nontender Chest: Chest palpation & inspection: normal inspection of the chest Resp: Effort & Inspection: normal respiratory effort and no audible wheezes Cardio: Rate: regular rate Rhythm: regular rhythm GI: GI Palp: No abdominal tenderness and Yes Soft to palpation : General: Yes deferred Skin: General skin exam: no rashes or lesions noted Neuro: General: patient oriented x3 and No confusion Extrem: General: capillary refill normal Right upper extremity: normal to inspection Left upper extremity: normal to inspection Right lower extremity: hip/thigh Details: tenderness Location: of the hip Location: laterally, swelling Location: at the hip ( mild) and other ( Right hip incision clean dry and intact. Muscle soft.), ankle ( able to actively flex and extend ankle) Details: no tenderness and foot Details: normal capillary refill, toes with normal ROM, vascular exam Details: normal capillary refill; dorsalis pedis pulse absent and posterior tibial pulse absent and motor-sensory exam Details: light-touch normal Location: in all toes; no tenderness Left lower extremity: normal to inspection, hip/thigh Details: no tenderness and no swelling, lower leg, ankle (no calf tenderness) Details: normal ROM; no tenderness and foot Details: normal capillary refill, vascular exam Details: normal capillary refill; dorsalis pedis pulse absent and posterior tivial pulse absent and motor-sensory exam light-touch normal in all toes Psych: Affect: normal affect Objective Data Vital Signs Vital Signs: Vital Signs - 24 hr 03/02/20 15:15 03/02/20 20:19 03/03/20 05:40 Temperature 98.2 F 98.2 F 98.1 F Pulse Rate 72 81 74 Respiratory Rate 16 14 16 Blood Pressure 148/66 H 147/64 H 136/62 Pulse Oximetry 97 97 96 Intake/Output Intake/Output: Intake & Output 02/29/20 03/01/20 03/02/20 03/03/20 23:59 23:59 23:59 23:59 Intake Total 4431 359 6372 740 Output Total 530 1930 Balance 3852 507 2333 -1190 Meds/Results Medications: Active Medications Generic Name Dose Route Start Last Admin Trade Name Freq PRN Reason Stop Dose Admin Acetaminophen 650 mg 02/29/20 17:56 03/03/20 03:33 Acetaminophen 325 Mg Tablet PO 650 mg Q4H PRN Administration Mild Pain (1-3) or Fever Hydrocodone Bitart/Acetaminophen 1 tab 03/01/20 16:25 03/03/20 10:29 Hydrocodone/Acetaminophen (*Crx) 7.5-325 Mg Tablet PO 1 tab Q3H PRN Administration Pain Rated 4-6 Aspirin 81 mg 03/01/20 21:00 03/02/20 20:22 Aspirin 81 Mg Enteric Tablet PO 81 mg HS UMU Administration Atorvastatin Calcium 10 mg 03/01/20 21:00 03/02/20 20:22 Atorvastatin 10 Mg Tablet PO 10 mg HS UMU Administration Benzocaine 1 lozenge 03/02/20 15:15 03/03/20 03:34 Benzocaine/Menthol (*Bkc) 18 Ea Lozenge
--- NOTE | 2020-03-03 14:51 | PM.DS ---
DS: Admitting Diagnosis Admitting Diagnosis Admitting Diagnosis: Right femoral neck fracture after mechanical fall DS: Discharge Diagnosis Discharge Diagnosis (1) Subcapital fracture of right hip: Qualifiers: Encounter type: subsequent encounter Fracture healing: with routine healing Fracture type: closed Qualified Code(s): S72.011D - Unspecified intracapsular fracture of right femur, subsequent encounter for closed fracture with routine healing Code(s): S72.011A - Unspecified intracapsular fracture of right femur, initial encounter for closed fracture Status: Acute Assessment and Plan: Discharge Summary (Date of service 03/03/20): Mr. Romano is a 61 y.o. male with PMH significant for CKD stage 3, CAD s/p CABGx4, hyperlipidemia, hypertension, and T2DM who presented to the emergency department 02/29/20 via EMS for the evaluation of right hip pain after sustaining a mechanical fall. Initial workup in the emergency deparment included plain films which showed acute subcapital right femoral neck fracture. He was seen by cardiology for pre-op risk stratification and felt to be low-moderate risk for surgery. He underwent closed reduction and percutaneous pin fixation of the right femoral neck fracture 03/01/[address] Gupta. He had no post-operative complications and progressed very well with PT/OT. He does have a hx of osteopenia and takes vitamin D and calcium supplement. Vitamin D level was sufficient but I did recommend he follow-up with his PCP outpatient for DEXA. He was felt stable for discharge home from an orthopedic surgery standpoint. He was voiding well following santamaria removal. Appetite was good and he was passing gas. Pain was well-controlled and he only endorsed pain with movement. He was discharged home in hemodynamically stable condition on the afternoon of 03/03/20. (2) Leukocytosis: Code(s): D72.829 - Elevated white blood cell count, unspecified Status: Acute Assessment and Plan: [place] to be reactive secondary to trauma from fall and post-op. There was no evidence of acute infection. (3) Chronic kidney disease, stage 3: Code(s): N18.30 - Chronic kidney disease, stage 3 unspecified Status: Acute Assessment and Plan: Renal function is stable on review of previous labs. Creatinine is 1.5. Plan for outpatient follow-up with his PCP which he already has scheduled. (4) Coronary artery disease: Qualifiers: Coronary Disease-Associated Artery/Lesion type: [place] artery [place] vs. transplanted heart: [place] heart Associated angina: without angina Qualified Code(s): I25.10 - Atherosclerotic heart disease of [place] coronary artery without angina pectoris Code(s): I25.10 - Atherosclerotic heart disease of [place] coronary artery without angina pectoris Status: Acute Assessment and Plan: Patient has extensive cardiac history including CABGx4 in 2001 and known multivessel CAD. He was seen by cardiology pre-operatively and felt to be low to moderate risk for non-cardiac surgery. ASA and atorvastatin were continued. He had no chest pain pre or post- operatively. (5) Type 2 diabetes mellitus: Code(s): E11.9 - Type 2 diabetes mellitus without complications Status: Inactive Assessment and Plan: A1c is 6.4. Blood sugars were well-controlled. Metformin was held while inpatient and resumed at discharge. (6) Hypertension: Code(s): I10 - Essential (primary) hypertension Status: Inactive Assessment and Plan: Blood pressures were reasonably controlled. He did have BP elevation initially, due to pain, but BP improved. Lisinopril-HCTZ was continued. (7) Hyperlipidemia: Code(s): E78.5 - Hyperlipidemia, unspecified Status: Inactive Assessment and Plan: Atorvastatin and Zetia were continued. DS: Summary Hospital Course Reason for hospitalization: Mechanical
== END 2020-03-03 16:27 | disposition home or self-care (01) | DRG 482 ==
LOC: ANHED 18:02 → ANH3MED 20:23
PROVIDERS: Orthopaedic Surgery; Physician Assistant; Admitting Provider Family Medicine; Emergency Provider Emergency Medicine; PCP Family Medicine; Visit Provider Internal Medicine
PROC: 0QS634Z Reposition Right Upper Femur with Internal Fixation Device, Percutaneous Approach (ICD-10-PCS; principal; 2020-03-01 14:30)
DX: S72.011A Unspecified intracapsular fracture of right femur, initial encounter for closed fracture (principal); W01.0XXA Fall on same level from slipping, tripping and stumbling without subsequent striking against object, initial encounter; D72.829 Elevated white blood cell count, unspecified; I12.9 Hypertensive chronic kidney disease with stage 1 through stage 4 chronic kidney disease, or unspecified chronic kidney disease; E11.22 Type 2 diabetes mellitus with diabetic chronic kidney disease; N18.30 Chronic kidney disease, stage 3 unspecified; E11.51 Type 2 diabetes mellitus with diabetic peripheral angiopathy without gangrene; I25.10 Atherosclerotic heart disease of native coronary artery without angina pectoris; E78.5 Hyperlipidemia, unspecified; H40.9 Unspecified glaucoma; M85.80 Other specified disorders of bone density and structure, unspecified site; Z95.1 Presence of aortocoronary bypass graft; Z87.442 Personal history of urinary calculi; Z90.49 Acquired absence of other specified parts of digestive tract; Z87.891 Personal history of nicotine dependence
CPT/HCPCS: 36415; 71045; 73502; 80048; 80053; 82306; 83036; 83735; 85025; 85027; 85610; 86850; 86900; 86901; 93005; 97110; 97116; 97161; 97165; 97530; 97535; 99285; A9270; C1713; C1769; J0360; J0690; J1100; J2250; J2270; J2370; J2405; J3010; J7120

== ENCOUNTER 2020-08-24 02:21 | Emergency (ER) | payer MEDICARE, SELFPAY ==
--- NOTE | ~2020-08-24 | CT_ITS ---
EXAMINATION: CT abdomen pelvis wo con EXAM DATE: 08/24/2020 03:10 INDICATION: Left flank pain. TECHNIQUE: Spiral CT of the abdomen and pelvis was performed without contrast. Axial, coronal and sag ittal images were reviewed. The dose-length product (DLP) for this examination was 312.27 mGy-cm. T he exposure was tailored according to patient size (auto mA exposure control), and iterative reconstr uction (ASIR) was used as additional dose reduction technique. There is no prior study for compariso n. FINDINGS: There is moderate right renal atrophy. Left inferior calyceal 3 mm stone. No ureteral stone s or hydronephrosis. The prostate is unremarkable. The bladder is unremarkable. The liver, spleen, adrenal glands and pancreas are unremarkable. There are cholecystectomy clips. There is no retrope ritoneal or pelvic lymphadenopathy. There is extensive scattered arterial sclerotic disease. The appendix is normal. There is extensive sigmoid predominant colonic diverticulosis. There is no a djacent inflammatory change to suggest diverticulitis. There is small sliding gastroesophageal hiatal hernia. There is expected amount of colonic stool. No free intraperitoneal gas. The heart is no rmal in size. There are no pericardial or pleural effusions. Mild basilar emphysema. There are no osteoblastic or osteolytic lesions identified. There are right hip lag screws. IMPRESSION: 1. Nonobstructing left calyceal stone. No acute findings. 2. Moderate right renal atrophy. 3. Extensive colonic diverticulosis. Reviewed, dictated and finalized at location A.
--- NOTE | ~2020-08-24 | XR_ITS ---
EXAMINATION: XR abdomen/kub 1V EXAM DATE: 08/24/2020 03:15 INDICATION: Kidney stone, left side pain x few hours. TECHNIQUE: Frontal projection of the upper abdomen, frontal projection lower abdomen/pelvis for inter pretation. Correlation is made to CT scan same day. FINDINGS: Possible identification of 3 mm left inferior calyceal stone. Nonobstructive bowel gas shawn marilyn. Cholecystectomy clips, right hip lag screws. There are mild bony degenerative changes. There is no organomegaly. Lung bases unremarkable. IMPRESSION: Possible identification small left nephrolithiasis. Reviewed, dictated and finalized at location A.
[2020-08-24 02:24] VITALS: BP 169/65; PULSE 53; RESP 18; TEMP 36.4; O2SAT 100
[2020-08-24 02:54] LABS: Basophils Absolute Auto 0.1 K/mm3 (0.0-0.1); Eosinophils Absolute Auto 0.7 K/mm3 (0-0.3); Eosinophils Percent Auto 5.9 % (0-4.4); Hematocrit 40.6 % (42.0-52.0); Hemoglobin 13.2 g/dL (14.0-18.0); Immature Granulocyte Absolute 0.02 K/mm3 (0.00-0.031); Immature Granulocyte Percent A 0.2 % (0-0.5); Lymphocytes Absolute Auto 3.39 K/mm3 (0.9-3.2); Lymphocytes Percent Auto 30.7 % (18.3-44.2); Mean Corpuscular HGB Conc 32.5 g/dl (32-36); Mean Corpuscular Hemoglobin 29.3 pg (26-34); Mean Platelet Volume 10.8 fl (7.4-10.4); Monocytes Absolute Auto 1.2 K/mm3 (0.1-0.6); Monocytes Percent Auto 10.7 % (2.6-8.5); Neutrophils Absolute Auto 5.7 K/mm3 (1.3-6.7); Neutrophils Percent Auto 51.5 % (45.5-73.1); Platelet Count Result 184 k/mm3 (150-375); Red Blood Count 4.51 M/mm3 (4.6-6.20)
[2020-08-24 02:57] LABS: Anion Gap 11 mmol/L (8-16); Blood Urea Nitrogen 24 mg/dL (9-20); Calcium 9.5 mg/dL (8.4-10.2); Carbon Dioxide 28 mmol/L (22-30); Chloride 105 mmol/L (98-107); Estimated CRCL calculation 39 ml/min; Estimated Glomerular Filt Rate 47; Glucose 180 mg/dL (75-110); Sodium 144 mmol/L (137-145)
[2020-08-24 03:03] LABS: Add Urine Microscopic? YES; Appearance Urine Clear (Clear); Bacteria Urine Trace /hpf; Bilirubin Urine Negative (Negative); Blood Urine Negative (Negative); Color Urine Yellow (Yellow); Glucose Urine UA Negative (Negative); Ketones Urine Negative (Negative); Leukocyte Esterase Ur Negative LEU/UL (Negative); Mucus Urine Rare /lpf; Nitrate Urine Negative (Negative); Protein Urine 1+ mg/dL (Negative); Specific Grav Ur 1.025 (1.001-1.035); Urobilinogen Urine Negative mg/dL (<2.0); WBC Urine 0-3 /hpf
[2020-08-24 03:23] VITALS: BP 146/73; PULSE 65; RESP 18; TEMP 36.6; O2SAT 100
[2020-08-24] MEDS: MORPHINE SULFATE (*CRX) 4 MG/ML INJ IV PUSH (03:26)
[2020-08-24] MEDS: SODIUM CHLORIDE 0.9% IV 1,000 ML 150 ML IV CONT (03:27)
[2020-08-24] MEDS: ONDANSETRON INJ 4 MG/2 ML VIAL IV PUSH (03:27)
--- NOTE | 2020-08-24 04:21 | ED.GENADULT ---
HPI - General Adult General Chief complaint: Back Pain/Injury Stated complaint: flank pain Time Seen by Provider: 08/24/20 02:47 Source: patient and family Mode of arrival: ambulatory History of Present Illness HPI narrative: 69-year-old with a history of CKD, hypertension, kidney stones here with a sudden onset of left flank pain. Patient states that the pain woke him up from sleep radiating from flank to groin area. Denied any fever or chills. However he states on his way to the hospital he is was feeling extremely nauseated and threw up. No history of blood in the urine. Onset (ago): hour(s) (1) Location: back and abdomen Severity: moderate Quality: sharp Pain Consistency: now resolved Exacerbating factors: none Associated symptoms: denies other symptoms Related Data Home Medications Medication Instructions Recorded Confirmed atorvastatin 10 mg PO HS 02/29/20 08/10/20 ezetimibe [Zetia] 10 mg PO HS 02/29/20 08/10/20 aspirin 325 mg tablet 325 mg PO DAILY tablet 03/22/20 08/10/20 calcium acetate PO 04/06/20 08/10/20 coenzyme Q10 [H2Q CoQ10] PO 04/06/20 08/10/20 krill oil PO 04/06/20 08/10/20 multivitamin 1 tablet PO DAILY 04/06/20 08/10/20 Allergies Allergy/AdvReac Type Severity Reaction Status Date / Time venom-honey bee Allergy Severe DIFFICULTY Verified 08/24/20 02:41 BREATHING venom-wasp Allergy Severe DIFFICULTY Verified 08/24/20 02:41 BREATHING Review of Systems Review of Systems: All systems reviewed & are unremarkable except as noted in HPI and below Constitutional: Constitutional: Reports no additional constitutional complaints Eyes: Eyes: Reports no additional eye complaints ENT: Reports system reviewed and no additional complaints, except as documented Cardiovascular: Cardiovascular: Reports no additional cardiovascular complaints Respiratory: Respiratory: Reports no additional respiratory complaints Gastrointestinal: Gastrointestinal: Reports as per HPI Musculoskeletal: Musculoskeletal: Reports no additional musculoskeletal complaints Integumentary/Breasts: Skin/Breast: Reports system reviewed and no additional complaints, except as docu PMFSH Past Medical History Medical History Chronic kidney disease, stage 3 Baseline creatinine is around 1.60. Colon polyps Coronary artery disease Status post 4 vessel bypass. Erectile dysfunction Glaucoma History of kidney stones Hyperlipidemia Hypertension Osteopenia Osteoporosis Status post closed fracture of right hip Type 2 diabetes mellitus Wears glasses Surgical History Surgical History History of cholecystectomy History of four vessel coronary artery bypass graft (~2001) Family History Family History Mother Myocardial infarction Father Sibling Congestive heart failure Other Diabetes mellitus Family history of heart disease in male family member before age 55 Heart disease Social History Social History Social History: The patient lives in [place] with his . 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 Former smoker, up to 2.5 packs of cigarettes per day. He quit in 2001 when he had his coronary bypass. No alcohol or illicit substance abuse. He designates his Opal Romano as his surrogate decision maker and he wishes to be a full code. Smoking packs per day: 2.5 Smoking cigarettes per day: 50.0 Years smoked: 20 Smoking pack-years: 50.00 Tobacco type: cigarettes Second hand tobacco smoke exposure: No Smoking end date: 03/19/01 Alcohol intake: former Substance use: never Substance use type: does not use Gender identity (if verbalized by the patient): Male Spiritual care concerns: No Agree to blood products: Yes Exam Narrative: Exam Narrative: GENERAL:
[2020-08-24 04:32] VITALS: BP 146/73; PULSE 65; RESP 18; TEMP 36.6; O2SAT 100
== END 2020-08-24 04:36 | disposition home or self-care (01) ==
PROVIDERS: Emergency Provider Family Medicine; PCP Family Medicine
DX: N20.0 Calculus of kidney (principal); E11.22 Type 2 diabetes mellitus with diabetic chronic kidney disease; I12.9 Hypertensive chronic kidney disease with stage 1 through stage 4 chronic kidney disease, or unspecified chronic kidney disease; N18.30 Chronic kidney disease, stage 3 unspecified; Z79.84 Long term (current) use of oral hypoglycemic drugs; Z87.442 Personal history of urinary calculi; Z86.010 Personal history of colon polyps; I25.10 Atherosclerotic heart disease of native coronary artery without angina pectoris; H40.9 Unspecified glaucoma; E78.5 Hyperlipidemia, unspecified; M85.80 Other specified disorders of bone density and structure, unspecified site; M81.0 Age-related osteoporosis without current pathological fracture; Z95.1 Presence of aortocoronary bypass graft; F17.210 Nicotine dependence, cigarettes, uncomplicated; K57.90 Diverticulosis of intestine, part unspecified, without perforation or abscess without bleeding
CPT/HCPCS: 36415; 74018; 74176; 80048; 81001; 85025; 96361; 96374; 96375; 99284; J2270; J2405; J7030

== ENCOUNTER 2020-11-29 00:54 | Day surgery (SDC) | payer MEDICARE, SELFPAY ==
[2020-11-18 13:53] VITALS: BMI 21.5
--- NOTE | 2020-11-26 14:27 | PM.HPGS ---
History of Present Illness History of Present Illness Consent: Risks, benefits, and alternatives have been discussed and questions answered. Patient agrees to proceed with procedure. Chief complaint: hx of colon polyps Narrative: Jamaal Romano is a 70 year old male here for colon cancer screening. He had polyps removed 5 years ago. Review of Systems Review of Systems: All systems reviewed & are unremarkable except as noted in HPI and below PMFSH Past Medical History Medical History Chronic kidney disease, stage 3 Baseline creatinine is around 1.60. Colon polyps Coronary artery disease Status post 4 vessel bypass. Erectile dysfunction Glaucoma History of kidney stones Hyperlipidemia Hypertension Osteopenia Osteoporosis Status post closed fracture of right hip Type 2 diabetes mellitus Wears glasses Surgical History Surgical History History of cholecystectomy History of four vessel coronary artery bypass graft (~2001) Family History Family History Mother Myocardial infarction Father Sibling Congestive heart failure Other Diabetes mellitus Family history of heart disease in male family member before age 55 Heart disease Social History Social History Social History: The patient lives in [place] with his . 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 Former smoker, up to 2.5 packs of cigarettes per day. He quit in 2001 when he had his coronary bypass. No alcohol or illicit substance abuse. He designates his Opal Romano as his surrogate decision maker and he wishes to be a full code. Smoking packs per day: 2.5 Smoking cigarettes per day: 50.0 Years smoked: 20 Smoking pack-years: 50.00 Tobacco type: cigarettes Second hand tobacco smoke exposure: No Smoking end date: 03/19/01 Alcohol intake: former Substance use: never Substance use type: does not use Living arrangements: with family Additional living arrangements comments: lives with spouse Gender identity (if verbalized by the patient): Male Sexual Orientation (if Verbalized by the Patient): Straight or Heterosexual Spiritual care concerns: No Agree to blood products: Yes Meds Home Medications and Allergies Home Medications Medication Instructions Recorded Confirmed Type atorvastatin 20 mg PO HS 02/29/20 11/18/20 History aspirin 325 mg tablet 325 mg PO DAILY tablet 03/22/20 11/18/20 History lisinopril 30 mg tablet 30 mg PO DAILY #90 tablet 03/22/20 11/18/20 Rx calcium acetate PO 04/06/20 08/10/20 History coenzyme Q10 [H2Q CoQ10] PO 04/06/20 08/10/20 History krill oil PO 04/06/20 08/10/20 History multivitamin 1 tablet PO DAILY 04/06/20 08/10/20 History metformin 500 mg tablet,extended 1,000 mg PO QPM #180 tablet 07/30/20 11/18/20 Rx release 24 hr Allergies Allergy/AdvReac Type Severity Reaction Status Date / Time venom-honey bee Allergy Severe DIFFICULTY Verified 11/29/20 06:55 BREATHING venom-wasp Allergy Severe DIFFICULTY Verified 11/29/20 06:55 BREATHING Exam Resp: Auscultation: clear to auscultation bilaterally Cardio: Rate: regular rate Rhythm: regular rhythm GI: GI Palp: Yes Soft to palpation and No Tenderness to palpation present (GI) Assessment and Plan Assessment and plan (1) Colon cancer screening: Code(s): Z12.11 - Encounter for screening for malignant neoplasm of colon Status: Acute Assessment and Plan: Colonoscopy with possible biopsy or polypectomy or cautery or injection of substances.
[2020-11-29 07:02] VITALS: BP 148/73; PULSE 77; RESP 16; TEMP 35.9; O2SAT 99; BMI 20.2
[2020-11-29] MEDS: LACTATED RINGERS 1,000 ML 150 ML IV CONT (07:07)
--- NOTE | 2020-11-29 07:17 | WPDANESEPPF ---
Anes - Initial Pre Proc Eval Procedure: Operation Date: 11/29/20 08:00 Proposed Procedures p Screening Colonoscopy - Edis Redmond MD Date/Time: 11/29/20 07:17 Surgeon: Edis Redmond MD Pre Op Diagnosis: hx of colon polyps Patient Data Age: 70 Gender: M Height: 1.78 m Weight: 64.1 kg Last Vital Signs Temp 35.9 C L 11/29/20 07:02 Pulse 77 11/29/20 07:02 Resp 16 11/29/20 07:02 BP 148/73 H 11/29/20 07:02 Pulse Ox 99 11/29/20 07:02 Allergies Allergy/AdvReac Type Severity Reaction Status Date / Time venom-honey bee Allergy Severe DIFFICULTY Verified 11/29/20 06:55 BREATHING venom-wasp Allergy Severe DIFFICULTY Verified 11/29/20 06:55 BREATHING Home Medications Medication Instructions Recorded Confirmed Type atorvastatin 20 mg PO HS 02/29/20 11/18/20 History aspirin 325 mg tablet 325 mg PO DAILY tablet 03/22/20 11/18/20 History lisinopril 30 mg tablet 30 mg PO DAILY #90 tablet 03/22/20 11/18/20 Rx calcium acetate PO 04/06/20 08/10/20 History coenzyme Q10 [H2Q CoQ10] PO 04/06/20 08/10/20 History krill oil PO 04/06/20 08/10/20 History multivitamin 1 tablet PO DAILY 04/06/20 08/10/20 History metformin 500 mg tablet,extended 1,000 mg PO QPM #180 tablet 07/30/20 11/18/20 Rx release 24 hr Patient hx anesthesia problems: none Family hx anesthesia problems: none PMFSH Past Medical History Medical History Chronic kidney disease, stage 3 Baseline creatinine is around 1.60. Colon polyps Coronary artery disease Status post 4 vessel bypass. 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 He quit in 2001 when he had his coronary bypass. No alcohol or illicit substance abuse. He designates his Opal Romano as his surrogate decision maker and he wishes to be a full code. Smoking packs per day: 2.5 Smoking cigarettes per day: 50.0 Years smoked: 20 Smoking pack-years: 50.00 Tobacco type: cigarettes Second hand tobacco smoke exposure: No Smoking end date: 03/19/01 Alcohol intake: former Substance use: never Substance use type: does not use Living arrangements: with family Additional living arrangements comments: lives with spouse Gender identity (if verbalized by the patient): Male Sexual Orientation (if Verbalized by the Patient): Straight or Heterosexual Spiritual care concerns: No Agree to blood products: Yes Anes - Eval Final PreProcedure Day of Procedure 11/29/20 07:17 Patient weight: normal Heart: regular rate and rhythm Lungs: clear to auscultation and normal air movement Airway: Mallampati scale class II Neurological: alert and oriented Last oral intake: >/= 8 hours ASA classification: III Emergent: no Anesthetic plan: proceed Anesthesia type and monitoring: general GIVS Informed Consent: The patient's anesthetic plan and its attendant risks and benefits were discussed with the patient/family/POA. Questions were solicited and answers provided to the satisfaction of the patient/family/POA.
[2020-11-29 07:18] LABS: Glucose Point of Care 140 mg/dl (65-105)
[2020-11-29 08:10] VITALS: BP 96/34; PULSE 58; RESP 18; O2SAT 99
[2020-11-29 08:20] VITALS: BP 94/51; PULSE 58; RESP 18; O2SAT 99
[2020-11-29 08:30] VITALS: BP 126/50; PULSE 57; RESP 19; O2SAT 100
== END 2020-11-29 08:55 | disposition home or self-care (01) ==
PROVIDERS: PCP Family Medicine; Visit Provider Internal Medicine Gastroenterology
PROC: 0DJD8ZZ Inspection of Lower Intestinal Tract, Via Natural or Artificial Opening Endoscopic (ICD-10-PCS; CPT 45378; principal; 2020-11-29 08:00)
DX: Z12.11 Encounter for screening for malignant neoplasm of colon (principal); Z86.010 Personal history of colon polyps; K57.30 Diverticulosis of large intestine without perforation or abscess without bleeding; I25.10 Atherosclerotic heart disease of native coronary artery without angina pectoris; I12.9 Hypertensive chronic kidney disease with stage 1 through stage 4 chronic kidney disease, or unspecified chronic kidney disease; N18.30 Chronic kidney disease, stage 3 unspecified; E11.22 Type 2 diabetes mellitus with diabetic chronic kidney disease; E78.5 Hyperlipidemia, unspecified; M85.80 Other specified disorders of bone density and structure, unspecified site; M81.0 Age-related osteoporosis without current pathological fracture; H40.9 Unspecified glaucoma; Z95.1 Presence of aortocoronary bypass graft; Z90.49 Acquired absence of other specified parts of digestive tract; Z87.442 Personal history of urinary calculi; Z87.891 Personal history of nicotine dependence
CPT/HCPCS: G0105; 82948; J2704; J7120

== ENCOUNTER 2020-12-27 14:18 | Outpatient (CLI) | payer MEDICARE, SELFPAY ==
--- NOTE | ~2020-12-27 | US_ITS ---
EXAMINATION: US carotid duplex BI DATE: 12/27/2020 14:57 INDICATION: Carotid bruit. TECHNIQUE: Grayscale, color Doppler, and pulsed Doppler images of the cervical carotid arteries were obtained. The degree of vessel stenosis is placed in one of the following categories: normal, <50%, 5 0-69%, >=70% but less than near-occlusion, near-occlusion, or total occlusion. Note that percent sten osis relative to normal distal artery lumen diameter is indirectly measured from velocity measurement s as described by Jason, et al. Radiology 2003; 229:340-346. COMPARISON: None. FINDINGS: RIGHT: The right common carotid artery (CCA) peak systolic velocity (PSV) is 69 cm/s. The right internal car otid artery (ICA) PSV is 210 cm/s. The right ICA end-diastolic velocity (EDV) is 54 cm/s. The right I CA/CCA PSV ratio is 3.1. Grayscale and color Doppler images yield an estimate of >=50% diameter reduc tion from plaque in the ICA. There is antegrade flow in the right vertebral artery. LEFT: The left CCA PSV is 54 cm/s. The left ICA PSV is 89 cm/s. The left ICA EDV is 34 cm/s. The left ICA/C CA PSV ratio is 1.7. Grayscale and color Doppler images yield an estimate of <50% diameter reduction from plaque in the ICA. There is antegrade flow in the left vertebral artery. IMPRESSION: 1. 50-69% stenosis in the right internal carotid artery. 2. <50% stenosis in the left internal carotid artery. Reviewed, dictated and finalized at location A.
== END 2020-12-27 14:19 | disposition home or self-care (01) ==
LOC: ANHIMG 14:22
PROVIDERS: PCP Family Medicine; Visit Provider Internal Medicine Cardiovascular Disease
DX: R09.89 Other specified symptoms and signs involving the circulatory and respiratory systems (principal); I65.23 Occlusion and stenosis of bilateral carotid arteries; I25.10 Atherosclerotic heart disease of native coronary artery without angina pectoris; E11.59 Type 2 diabetes mellitus with other circulatory complications
CPT/HCPCS: 93880

== ENCOUNTER 2021-09-21 11:22 | Outpatient (CLI) | payer MEDICARE, SELFPAY ==
[2021-09-21 12:05] LABS: Uric Acid 7.8 mg/dL (3.5-8.5)
== END 2021-09-21 11:23 | disposition home or self-care (01) ==
LOC: ANHLAB 11:24
PROVIDERS: PCP Family Medicine; Visit Provider Family Medicine
DX: M79.673 Pain in unspecified foot (principal)
CPT/HCPCS: 36415; 84550

== ENCOUNTER 2022-10-06 12:52 | Outpatient (CLI) | payer MEDICARE, SELFPAY ==
--- NOTE | ~2022-10-06 | XR_ITS ---
EXAMINATION: XR lg joint inject/asp w image DATE: 10/06/2022 13:51 INDICATION: Right hip arthritis. TECHNIQUE: A time-out was performed to verify the patient's name, date of , and procedure to b e performed. The procedure including the risks, benefits, and alternatives was discussed with the pat ient. Risks discussed included bleeding and infection. The patient understood the risks and agreed to proceed. The skin overlying the right hip joint was prepped and draped in usual sterile fashion. A nesthetic was administered with 1% lidocaine subcutaneously. A 22 G needle was advanced under fluoro scopic guidance into the joint. Subsequently, injectate consisting of 2 mL 0.5% bupivacaine and 1 mL 80 mg/mL Depo-Medrol was instilled. The needle was removed and the entry site was cleaned and dress ed. There were no immediate complications. Fluoroscopy exposure time was 0.1 minutes. The total numb er of images was 1. FINDINGS: Real-time fluoroscopy demonstrates the needle in the right hip joint. Patient's pain prior to procedure:4/10. Patient's pain following the procedure: 2/10. IMPRESSION: 1. Fluoroscopy guided right hip joint injection of local anesthetic and steroid with decrease in the patient's presenting pain. Reviewed, dictated and finalized at location A.
== END 2022-10-06 12:53 | disposition home or self-care (01) ==
PROVIDERS: PCP Family Medicine; Visit Provider Orthopaedic Surgery
DX: M16.11 Unilateral primary osteoarthritis, right hip (principal)
CPT/HCPCS: 20610; 77002; J1040

== ENCOUNTER 2022-10-26 11:14 | Emergency (ER) | payer MEDICARE, SELFPAY ==
--- NOTE | ~2022-10-26 | XR_ITS ---
EXAMINATION: XR pelvis 1-2V DATE: 10/26/2022 13:24 INDICATION: Right hip pain TECHNIQUE: An anteroposterior view of the pelvis was obtained. COMPARISON: 10/04/2022, 12/03/2020 and 04/06/2020 FINDINGS: Again seen is a subcapital fracture of the proximal right femur which is fixed with 3 cannulated lag screws. There has been increasing impaction and subsidence of the femoral head relative to the femora l neck with progressive backing out of the 3 lag screws along the lateral margin of the intratrochant inna right femur. For reference the surface of the head of the caudal-most screw which previously pro jected 1.5 cm beyond the lateral cortical margin now projects 2.5 cm beyond the lateral cortical ember in. The tips of the screws do not appear to upper check beyond the cortical margin on the single prov ided frontal projection. There appears be secondary leg length discrepancy with asymmetric proximal m igration of the right lesser trochanter when compared with the left. No other fractures identified. B ilateral hip joint spaces remain relatively preserved. Mild osteoarthritis at the bilateral sacral il iac joints. Several surgical clips along the medial aspect of the bilateral proximal thighs. IMPRESSION: 1. Progressive subsidence of an internally fixed subcapital fracture of the proximal right femur. Reviewed, dictated and finalized at location L. IMPRESSION: 1. Progressive subsidence of an internally fixed subcapital fracture of the pro ximal right femur.
[2022-10-26 11:31] VITALS: BP 150/56; PULSE 60; RESP 16; TEMP 36.3; O2SAT 99
[2022-10-26] MEDS: ACETAMINOPHEN 500 MG TABLET 1000 MG PO (13:29)
[2022-10-26] MEDS: LIDOCAINE 5% PATCH 1 PATCH TRANSDERM (13:31)
--- NOTE | 2022-10-26 14:58 | ED.LOWEXIN ---
HPI - Extremity Injury (Lower) General Chief Complaint: Extremity Injury, Lower Stated Complaint: R hip pain - history of hip replacement Time Seen by Provider: 10/26/22 12:17 History of Present Illness HPI Narrative: This is a 71-year-old male, with history of right femur ORIF, who presents to the emergency department complaining of right hip pain for the past 2 days. The pain is described as sharp, rated 10/10 and aggravated with lifting the right leg. The patient states he is able to walk, has not fallen and denies fever. Related Data Home Medications Medication Instructions Recorded Confirmed aspirin 325 mg tablet 325 mg PO DAILY 03/22/20 10/04/22 calcium acetate PO 04/06/20 10/04/22 coenzyme Q10 [H2Q CoQ10] PO 04/06/20 10/04/22 krill oil PO 04/06/20 10/04/22 multivitamin 1 tablet PO DAILY 04/06/20 10/04/22 Allergies Allergy/AdvReac Type Severity Reaction Status Date / Time venom-honey bee Allergy Severe DIFFICULTY Verified 10/26/22 11:14 BREATHING venom-wasp Allergy Severe DIFFICULTY Verified 10/26/22 11:14 BREATHING Review of Systems Review of Systems: CONSTITUTIONAL: Denies fever, chills, or sweats. CARDIOVASCULAR: Denies chest pain, palpitations, or edema. RESPIRATORY: Denies cough or dyspnea. GASTROINTESTINAL: Denies abdominal pain, nausea, vomiting, or diarrhea. GENITOURINARY: Denies dysuria or hematuria. SKIN: Denies rash or itching. MUSCULOSKELETAL: Right hip pain denies back pain, or myalgia. NEUROLOGIC: Denies headache, numbness, dizziness, or weakness. PSYCHIATRIC: Denies anxiety or depression. PENDING SALE TO [facility] Past Medical History Medical History Arthritis of right hip Bilateral carotid bruits Chronic kidney disease, stage 3 Baseline creatinine is around 1.60. Colon polyps Coronary artery disease Status post 4 vessel bypass. Erectile dysfunction Glaucoma History of kidney stones Hyperlipidemia Hypertension Osteopenia Osteoporosis Status post closed fracture of right hip Type 2 diabetes mellitus Wears glasses Surgical History Surgical History History of cholecystectomy History of four vessel coronary artery bypass graft (~2001) Family History Family History Mother Myocardial infarction Father Sibling Congestive heart failure Other Diabetes mellitus Family history of heart disease in male family member before age 55 Heart disease Social History Social History Social History: The patient lives in [place] with his . 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 Former smoker, up to 2.5 packs of cigarettes per day. He quit in 2001 when he had his coronary bypass. No alcohol or illicit substance abuse. He designates his Opal Romano as his surrogate decision maker and he wishes to be a full code. Smoking packs per day: 2.5 Smoking cigarettes per day: 50.0 Years smoked: 20 Smoking pack-years: 50.00 Smoking status: Former smoker Tobacco type: cigarettes Second hand tobacco smoke exposure: No Smoking end date: 03/19/01 Alcohol intake: former Substance use: never Substance use type: does not use Living arrangements: with family Additional living arrangements comments: lives with spouse Occupation/Education: retired Gender identity (if verbalized by the patient): Male Sexual Orientation (if Verbalized by the Patient): Straight or Heterosexual Spiritual care concerns: No Agree to blood products: Yes Exam Narrative: GENERAL: Well-developed, well-nourished, and in no acute distress. HEAD: Normocephalic, atraumatic. EYES: PERRLA and EOMI. CHEST: Clear to auscultation. No respiratory distress. No wheezes rales or rhonchi HEART: Regular rate and rhythm. No murmur heard. Normal peripheral pulses. ABDOMEN
== END 2022-10-26 15:15 | disposition home or self-care (01) ==
PROVIDERS: Emergency Provider Preventive Medicine Aerospace Medicine; PCP Family Medicine
DX: M25.551 Pain in right hip (principal); M16.11 Unilateral primary osteoarthritis, right hip; I12.9 Hypertensive chronic kidney disease with stage 1 through stage 4 chronic kidney disease, or unspecified chronic kidney disease; E11.22 Type 2 diabetes mellitus with diabetic chronic kidney disease; N18.30 Chronic kidney disease, stage 3 unspecified; I25.10 Atherosclerotic heart disease of native coronary artery without angina pectoris; E11.39 Type 2 diabetes mellitus with other diabetic ophthalmic complication; H42 Glaucoma in diseases classified elsewhere; E78.5 Hyperlipidemia, unspecified; M81.0 Age-related osteoporosis without current pathological fracture; M85.80 Other specified disorders of bone density and structure, unspecified site; Z95.1 Presence of aortocoronary bypass graft; Z86.010 Personal history of colon polyps; Z87.442 Personal history of urinary calculi; Z87.891 Personal history of nicotine dependence; Z90.49 Acquired absence of other specified parts of digestive tract; Z79.82 Long term (current) use of aspirin; Z79.84 Long term (current) use of oral hypoglycemic drugs
CPT/HCPCS: 72170; 99283; A9270

== ENCOUNTER 2023-01-05 09:50 | Outpatient (CLI) | payer MEDICARE, SELFPAY ==
--- NOTE | 2023-01-05 10:48 | ECG_ITS ---
Measurements Intervals [place] Rate: 52 P: 68 W[place]: 147 QRS: 46 QRSD: 118 T: 45 QT: 396 QTc: 371 Interpretive Statements SINUS BRADYCARDIA SEPTAL MYOCARDIAL INFARCTION [40+ ms Q WAVE IN V1/V2], OF INDETERMINATE AGE COMPARED TO ECG 02/29/2020 17:56:08 SINUS BRADYCARDIA NOW PRESENT Electronically Signed On 01-05-2023 13:35:36 CDT by Ashish Washington MD
[2023-01-05 11:19] LABS: Basophils Absolute Auto 0.1 K/mm3 (0.0-0.1); Basophils Percent Auto 1.1 % (0.2-1.2); Eosinophils Absolute Auto 0.6 K/mm3 (0-0.3); Eosinophils Percent Auto 5.7 % (0-4.4); Hematocrit 42.9 % (42.0-52.0); Immature Granulocyte Absolute 0.02 K/mm3 (0.00-0.031); Immature Granulocyte Percent A 0.2 % (0-0.5); Lymphocytes Absolute Auto 2.24 K/mm3 (0.9-3.2); Lymphocytes Percent Auto 23.3 % (18.3-44.2); Mean Corpuscular HGB Conc 32.6 g/dl (32-36); Mean Corpuscular Volume 92.1 fl (80-100); Mean Platelet Volume 10.2 fl (7.4-10.4); Monocytes Percent Auto 9.9 % (2.6-8.5); Neutrophils Absolute Auto 5.8 K/mm3 (1.3-6.7); Neutrophils Percent Auto 59.8 % (45.5-73.1); Platelet Count Result 201 k/mm3 (150-375); Red Blood Count 4.66 M/mm3 (4.6-6.20); White Blood Count 9.6 K/mm3 (4.5-10.0)
[2023-01-05 11:20] LABS: Appearance Urine Clear (Clear); Bilirubin Urine Negative (Negative); Blood Urine Negative (Negative); Color Urine Yellow (Yellow); Glucose Urine UA Negative (Negative); Ketones Urine Negative (Negative); Leukocyte Esterase Ur Negative LEU/UL (Negative); Nitrate Urine Negative (Negative); Protein Urine Negative (Negative); Specific Grav Ur 1.014 (1.001-1.035); Urobilinogen Urine 0.2 mg/dL (<2.0)
[2023-01-05 11:21] LABS: Add Urine Microscopic? NO
[2023-01-05 11:28] LABS: Urine Cotinine NEGATIVE
[2023-01-05 11:29] LABS: Albumin Level 4.7 g/dL (3.5-5.1); Anion Gap 9 mmol/L (8-16); Blood Urea Nitrogen 22 mg/dL (9-20); Calcium 10.1 mg/dL (8.4-10.2); Carbon Dioxide 30 mmol/L (22-30); Chloride 101 mmol/L (98-107); Estimated Glomerular Filt Rate 50; Glucose 122 mg/dL (65-110); INR 0.9; Potassium 4.6 mmol/L (3.4-5.0); Prothrombin Time 12.7 Seconds (11.1-14.7); Sodium 140 mmol/L (137-145)
[2023-01-05 11:30] LABS: Partial Thromboplastin Time 28.2 SECONDS (22.3-36.8)
[2023-01-05 12:26] LABS: Hemoglobin A1C 6.2 % (<5.7)
== END 2023-01-05 09:51 | disposition home or self-care (01) ==
LOC: ANHSURGERY 09:53
PROVIDERS: PCP Family Medicine; Visit Provider Orthopaedic Surgery
DX: Z01.818 Encounter for other preprocedural examination (principal); M87.051 Idiopathic aseptic necrosis of right femur
CPT/HCPCS: 80048; 80307; 81003; 82040; 83036; 85025; 85610; 85730; 86850; 86900; 86901; 87081; 93005

== ENCOUNTER 2023-01-18 11:00 | Inpatient (IN) | payer MEDICARE, SELFPAY ==
--- NOTE | 2023-01-05 09:56 | PC.NURSE ---
PRE-OP INSTRUCTIONS, PLEASE READ CAREFULLY Report to the Outpatient Waiting Room, entrance under the green pavilion located off [facility], at time _0600_ on date _01/18/23_. Planned Procedure Time: _0730_. PACK A SMALL OVERNIGHT BAG AND LEAVE IN THE CAR ALONG WITH YOUR WALKER Time changes happen often and if your time is changed the preop area will call you the afternoon before. - You and your visitor will be asked to self-screen and do not enter if you have any COVID symptoms. - A mask is optional within the hospital at this time. -VISITING HOURS 8AM-8PM Patients may have clear liquids (water, carbonated beverages, clear teas, apple juice) until 3 hours prior to surgery (0430 AM) with a maximum of 20 ounces. - No food from midnight until time of surgery Take the following medications with a SIP of water the morning of surgery: _TYLENOL IF NEEDED_ DO NOT STOP ANY OF YOUR OTHER PRESCRIPTION MEDICATIONS PRIOR TO SURGERY ?EXCEPT THE FOLLOWING Medications to discontinue per ANESTHESIA - _MULTIVITAMIN, KRILL OIL 3 DAYS PRIOR TO SURGERY, Date to take last dose 01/14/23_ Please no make-up, nail lithuanian, hairspray, perfume, deodorant, or body powder the day of surgery. No jewelry (including any body piercings) or valuables the day of surgery, leave them at home. Please take a shower or bath the night before, or the morning of, surgery with an antibacterial soap. Wear comfortable, loose fitting clothing. - Jewelry must be removed prior to entering the operating room. Rings and piercings that are not removed may be cut off. - The hospital will not accept responsibility for valuables. - Please leave all valuables, including medications, at home the day of surgery. If you are going home after surgery, a licensed stud driver must drive you home. - NO public transportation without another adult if you receive anesthesia. - We recommend that an adult stay with you for 24 hours following discharge. - We also recommend that you do not drive, make important decision, drink alcoholic beverages, or take any drugs that were not prescribed by your health care provider for at least 24 hours after your discharge time. Follow any additional instructions given to you from your surgeon. If you or anyone in your household have experienced Covid symptoms in the past week, please notify your surgeon or the nurse liaison at the phone number below for possible testing. Instructions given to _PATIENT_and asked if any additional questions and then verbalized understanding. Patient advised to call surgeon office or pre surgery nurse liaison [phone] if any additional questions.
[2023-01-05 10:22] VITALS: BP 142/54; PULSE 58; RESP 20; TEMP 36.7; O2SAT 100; BMI 21.1
--- NOTE | 2023-01-17 12:24 | PM.IMHP ---
H&P: HPI History of Present Illness Date/Time: 01/17/23 12:24 Chief Complaint: Right hip pain Narrative: 3 years status post right hip pinning from hip fracture. Has gone on to avascular necrosis of the femoral head and collapse of the femoral neck. Shortening. Pain with ambulation. Worse with motion of the hip. Has failed cortisone injection. Presents for operative treatment. Review of Systems Constitutional: Constitutional: Denies fever(s) Eyes: Eyes: Denies blurry vision ENT: Reports Normal hearing present Cardiovascular: Cardiovascular: Denies chest pain, Denies dyspnea, Denies orthopnea and Denies paroxysmal nocturnal dyspnea Respiratory: Respiratory: Denies dyspnea and Denies wheezing Gastrointestinal: Gastrointestinal: Denies abdominal pain Genitourinary: Genitourinary: Denies urinary urgency Musculoskeletal: Musculoskeletal: Reports as per HPI, Reports arthralgias ( Right hip) and Denies numbness Integumentary/Breasts: Skin/Breast: Denies changing lesions and Denies sores Neurologic: Reports Normal hearing present, Denies behavioral changes, Denies confusion, Denies numbness and Denies convulsions Psychiatric: Psychiatric: Denies behavioral changes, Denies confusion and Denies hallucinations Endocrine: Endocrine: Denies heat intolerance Hematologic/Lymphatic: Hematologic/Lymphatic: Denies easy bleeding Allergic/Immunologic: Allergic/Immunologic: Denies wheezing [facility] Past Medical History Medical History (Updated 01/17/23 @ 12:25 by Rob Gupta MD) Arthritis of right hip Avascular necrosis of right femoral head Bilateral carotid bruits Chronic kidney disease, stage 3 Baseline creatinine is around 1.60. Colon polyps Coronary artery disease Status post 4 vessel bypass. Erectile dysfunction Glaucoma History of kidney stones Hyperlipidemia Hypertension Osteopenia Osteoporosis Status post closed fracture of right hip Type 2 diabetes mellitus Wears glasses Surgical History Surgical History History of cholecystectomy History of four vessel coronary artery bypass graft (~2001) Family History Family History Mother Myocardial infarction Father Sibling Congestive heart failure Other Diabetes mellitus Family history of heart disease in male family member before age 55 Heart disease Social History Social History Social History: The patient lives in [place] with his . 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 Former smoker, up to 2.5 packs of cigarettes per day. He quit in 2001 when he had his coronary bypass. No alcohol or illicit substance abuse. He designates his Opal Romano as his surrogate decision maker and he wishes to be a full code. Smoking packs per day: 2.5 Smoking cigarettes per day: 50.0 Years smoked: 20 Smoking pack-years: 50.00 Smoking status: Former smoker Tobacco type: cigarettes Second hand tobacco smoke exposure: No Smoking end date: 03/19/01 Additional smoking assessment comments: PT DENIES ALL FORMS OF TOBACCO USE Alcohol intake: former Substance use: never Substance use type: does not use Living arrangements: with family Additional living arrangements comments: lives with spouse Occupation/Education: retired Gender identity (if verbalized by the patient): Male Sexual Orientation (if Verbalized by the Patient): Straight or Heterosexual Spiritual care concerns: No Agree to blood products: Yes Meds Home Medications and Allergies Home Medications Medication Instructions Recorded Confirmed Type calcium acetate 600 mg PO QAM 04/06/20 01/05/23 History coenzyme Q10 [H2Q CoQ10] 100 mg PO QAM 04/06/20 01/05/23 History krill oil 350 mg PO HS 04/06/20 01/05/23 History multivitamin 1 tablet PO QAM 04/06/20 01/05/23 History atorvastati
--- NOTE | 2023-01-17 14:08 | WPDANESEPPF ---
Anes - Initial Pre Proc Eval Procedure: Operation Date: 01/18/23 07:30 Proposed Procedures s Right Hip Hardware Removal, - Rob Gupta MD p Hemiarthroplasty Right Hip Proceed As Indicated - Rob Gupta MD Date/Time: 01/17/23 14:08 Surgeon: Rob Gupta MD Pre Op Diagnosis: right avascular necrosis Patient Data Age: 72 Gender: M Height: 1.78 m Weight: 66.7 kg Last Vital Signs Temp 98.1 F 01/05/23 10:22 Pulse 58 L 01/05/23 10:22 Resp 20 01/05/23 10:22 BP 142/54 H 01/05/23 10:22 Pulse Ox 100 01/05/23 10:22 O2 Del Method Room Air 01/05/23 10:22 Allergies Allergy/AdvReac Type Severity Reaction Status Date / Time venom-honey bee Allergy Severe DIFFICULTY Verified 01/05/23 10:13 BREATHING venom-wasp Allergy Severe DIFFICULTY Verified 01/05/23 10:13 BREATHING Home Medications Medication Instructions Recorded Confirmed Type calcium acetate 600 mg PO QAM 04/06/20 01/05/23 History coenzyme Q10 [H2Q CoQ10] 100 mg PO QAM 04/06/20 01/05/23 History krill oil 350 mg PO HS 04/06/20 01/05/23 History multivitamin 1 tablet PO QAM 04/06/20 01/05/23 History atorvastatin 20 mg tablet See Rx Instructions .Route 06/23/22 01/05/23 Rx .COMPLEX #100 tabs lisinopril 30 mg tablet 30 mg PO DAILY #90 tabs 10/05/22 01/05/23 Rx metformin 500 mg tablet,extended 1,000 mg PO QPM #180 tabs 10/05/22 01/05/23 Rx release 24 hr amlodipine 5 mg tablet See Rx Instructions .Route 12/25/22 01/05/23 Rx .COMPLEX #100 tabs aspirin 81 mg capsule 81 mg PO DAILY #1 cap 01/03/23 01/05/23 Rx acetaminophen 500 mg tablet 500 mg PO QID PRN Pain 01/05/23 01/05/23 History atorvastatin 20 mg tablet 20 mg PO HS 01/05/23 01/05/23 History bimatoprost 0.01 % eye drops 1 drp EACH EYE QPM 01/05/23 01/05/23 History ([place]) cholecalciferol (vitamin D3) 50 50 mcg PO DAILY 01/05/23 01/05/23 History mcg (2,000 unit) tablet Patient hx anesthesia problems: none Family hx anesthesia problems: none Results Review: All pre-operative results and documents have been reviewed as part of the pre-operative evaluation. [facility] Past Medical History Medical History (Updated 01/17/23 @ 12:25 by Rob Gupta MD) Arthritis of right hip Avascular necrosis of right femoral head Bilateral carotid bruits Chronic kidney disease, stage 3 Baseline creatinine is around 1.60. Colon polyps Coronary artery disease Status post 4 vessel bypass. Erectile dysfunction Glaucoma History of kidney stones Hyperlipidemia Hypertension Osteopenia Osteoporosis Status post closed fracture of right hip Type 2 diabetes mellitus Wears glasses Surgical History Surgical History History of cholecystectomy History of four vessel coronary artery bypass graft (~2001) Family History Family History Mother Myocardial infarction Father Sibling Congestive heart failure Other Diabetes mellitus Family history of heart disease in male family member before age 55 Heart disease Social History Social History Social History: The patient lives in [place] with his . 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 Former smoker, up to 2.5 packs of cigarettes per day. He quit in 2001 when he had his coronary bypass. No alcohol or illicit substance abuse. He designates his Opal Romano as his surrogate decision maker and he wishes to be a full code. Smoking packs per day: 2.5 Smoking cigarettes per day: 50.0 Years smoked: 20 Smoking pack-years: 50.00 Smoking status: Former smoker Tobacco type: cigarettes Second hand tobacco smoke exposure: No Smoking end date: 03/19/01 Additional smoking assessment comments: PT DENIES ALL FORMS OF TOBACCO USE Alcohol intake: former Substance use: never Substance use type: does not use Living arrange
[2023-01-18] VITALS (14 sets, daily range): BP systolic 111–156; BP diastolic 47–86; PULSE 69–115; RESP 12–16; TEMP 36.2–37.1; O2SAT 93–100
--- NOTE | ~2023-01-18 | XR_ITS ---
EXAMINATION: XR hip RT min 2V DATE: 01/18/2023 10:16 INDICATION: Right hip arthroplasty. Postop. TECHNIQUE: 2 views of right hip were obtained. COMPARISON: Right hip radiographs 11/14/2022 FINDINGS: There is a bipolar right hip hemiarthroplasty in near-anatomic alignment. No fracture. Ther e is gas in the soft tissues, consistent recent surgery. Surgical clips are noted in the thighs. IMPRESSION: 1. Bipolar right hip hemiarthroplasty in near-anatomic alignment. Reviewed, dictated and finalized at location E.
[2023-01-18 06:38] LABS: Glucose Point of Care 141 mg/dl (65-105)
[2023-01-18] MEDS: ACETAMINOPHEN 500 MG TABLET 1000 MG PO (06:40)
[2023-01-18] MEDS: TRANEXAMIC ACID 1,000MG/ISO100 1,000 MG/100 ML BAG 200 MG IVPB (07:00)
--- NOTE | 2023-01-18 07:10 | WPDHPUPDATE1 ---
History and Physical Update Update Date/Time: 01/18/23 07:10 History and Physical has been reviewed, including an updated exam of the patient. There are NO changes in the patient's condition. Risks, benefits, and alternatives have been discussed and questions answered. Patient agrees to proceed with procedure.
[2023-01-18] MEDS: LACTATED RINGERS 1,000 ML 30 ML IV CONT ×2 (07:30→09:54)
[2023-01-18] MEDS: ceFAZolin 2 GM/D5W 50 ML 2 GM/50 ML BAG IVPB (07:36)
[2023-01-18] MEDS: BUPIVACAINE/EPINEPHRINE 0.5% 50 ML VIAL INFILTRATE (08:30)
[2023-01-18 10:01] LABS: Glucose Point of Care 179 mg/dl (65-105)
--- NOTE | 2023-01-18 10:02 | W.PM.PROC2 ---
Procedure Note - Detailed Date of Procedure 01/18/23 Pre-op Diagnosis right hip avascular necrosis Post-op Diagnosis Same Procedure Performed Right hip removal of hardware, right hip hemiarthroplasty Surgeon Rob Gupta MD Flooring Grader 1st cardiovascular physician assistant Anesthesia General Indications 72-year-old who is 3 years status post right femoral neck hip fracture treated with percutaneous pinning. He has gone on to develop avascular necrosis of the head with collapse of the neck. Shortening on the right side of approximately 1 in. Presents for operative treatment. Findings Avascular necrosis with changes of the femoral head. Short scarred femoral neck. Acetabulum without arthritis or defect. Description of Procedure After informed consent was given, the operative extremity was marked in the preoperative holding area. The patient received intravenous antibiotics. Patient was brought to the operating room where they underwent a general anesthetic. Positioned in the lateral decubitus position nonop side down and the operative hip up. The right hip was then prepped and draped in the usual sterile surgical fashion using ChloraPrep skin solution. Time-out performed confirming the patient, side of the surgery, and the plan. A longitudinal incision was then made over the lateral side of the hip with the 10-blade knife. Hemostasis was controlled with electrocautery. Dissection was carried down through the fascia, which was incised in line with the skin incision. Subfascial retractor was placed. There were 3 screws present which were penetrating through the vastus lateralis. These were identified freed up from the soft tissue and removed with a screwdriver. Screws were passed off. Holes were curetted and irrigated. The abductor musculature was then elevated off the lateral side of the femur leaving a cuff of tissue for repair. The short abductor musculature was then elevated off the capsule and retention sutures were placed at the corner. The capsule was then incised in line with the femoral neck and T'd at the base. This allowed exposure of the fracture. The fracture hematoma was evacuated. Proximal femoral cutting guide was used to make a femoral neck cut at 2 cm above the lesser trochanter. This bone was removed with a rongeur. We then removed the head with a corkscrew. This was measured on the back table. Trialing of the acetabulum was done and a size 50 mm had excellent fit. The acetabulum was thoroughly irrigated and suctioned. Part of the fovea was ossified and was removed with cautery. The rest of the acetabulum was inspected and noted to be without degenerative changes. The proximal femur was then prepared. A posterior femoral retractor elevator was placed and a box cutting chisel was used to enter the femoral canal. We then used the canal finder. Broaching was then performed sequentially in 1 mm increments from a size 4 up to a size 14. This was noted to have excellent fit. We then trialed the hip. Excellent fit, stability with external and internal rotation at full extension and flexion of his hip and leg shuck were noted. The trial components were then removed. There was thorough irrigation with antibiotic solution of the proximal femur, acetabulum, and the wound. The femoral stem was then impacted into place. Good fit was noted. Trialing was once again performed and a neutral stem with a 50 mm acetabular cup had excellent stability and range of motion. The trial components were removed and the 28 mm head acetabular cup were then impacted onto the femoral stem. The hip was then reduced once again, taken through full range of motion and noted to be stable with the leg extended in full external and internal rotation with the hip flexed to 90 degrees with internal and external rotation. There was equal leg length noted. Wound was thoroughly irrigated with antibiotic solution. The capsule was repaired with #1 Vicryl interrupted suture. The
[2023-01-18] MEDS: fentaNYL CITRATE INJ (*CRX) 100 MCG/2 ML VIAL 25 MCG IV PUSH ×4 (10:17→10:49)
--- NOTE | 2023-01-18 11:10 | ADMGEN ---
This patient, Jamaal Romano, was admitted to Medical Room 261-01. Patient/family oriented to hospital policies and general routines including ID bracelet, bed and alarms, visiting hours, pain management, procedures, bathroom and other care routines, personal items, smoking policy, room service/diet, and visiting hours. Information on how to activate the Rapid Response Team has been discussed. Patient/Family are encouraged to report perceived risks to care and to ask questions if they do not understand what they are told or what they should do.
[2023-01-18 11:41] LABS: Glucose Point of Care 202 mg/dl (65-105)
--- NOTE | 2023-01-18 12:31 | PM.PNORT ---
Progress Note: A&P Assessment and Plan (1) Avascular necrosis of right femoral head: Code(s): M87.051 - Idiopathic aseptic necrosis of right femur Status: Acute Assessment and Plan: Postoperative check right hip hemiarthroplasty. Overall patient comfortable. Operative findings and treatment reviewed with patient and his . PT/OT with weight-bearing as tolerated. Diabetic diet. Appreciate hospitalist consultation for medical management of diabetes, hypertension, coronary artery disease. Pain control. DVT prophylaxis with aspirin. Plan for home with home health when medically stable. Subjective Subjective Date/Time Seen: 01/18/23 12:31 Post Op day: 0 Principal diagnosis: RT hip AVN Interval history: Postsurgical from right hip removal of hardware and hemiarthroplasty replacement for AVN. Patient states a little groggy. Mild pain right hip. Denies numbness and tingling. Exam Const: General: comfortable; No acute distress Resp: Effort & Inspection: normal respiratory effort and no audible wheezes Extrem: Right lower extremity: lower leg ( Negative Homans sign), ankle Details: normal ROM ( dorsiflexion and plantar flexion intact) and foot Details: vascular exam Details: dorsalis pedis pulse present and normal capillary refill, tendon exam Details: active flexion normal and active extension normal and motor-sensory exam Details: light-touch normal Location: in all toes; no edema Left lower extremity: normal to inspection, ankle Details: normal ROM and foot Details: vascular exam Details: dorsalis pedis pulse present and normal capillary refill and motor-sensory exam light-touch normal in all toes; no edema Other: Right hip dressing in place. Clean and dry. Objective Data Vital Signs Vital Signs: Vital Signs - 24 hr 01/18/23 07:14 01/18/23 09:54 01/18/23 10:10 Temperature 97.1 F L 97.7 F Pulse Rate 69 115 H 76 Respiratory Rate 14 16 14 Blood Pressure 137/57 L 150/66 H 146/70 H Pulse Oximetry 100 100 100 Oxygen Delivery Room Air Simple Face Mask Simple Face Mask Oxygen Flow Rate 8 8 01/18/23 10:25 01/18/23 10:40 01/18/23 10:55 Temperature Pulse Rate 72 69 77 Respiratory Rate 12 12 12 Blood Pressure 127/56 L 128/56 L 126/56 L Pulse Oximetry 97 96 94 Oxygen Delivery Room Air Room Air Room Air Oxygen Flow Rate 01/18/23 11:10 01/18/23 11:25 01/18/23 11:55 Temperature 97.3 F L 97.1 F L 97.3 F L Pulse Rate 75 74 77 Respiratory Rate 12 12 13 Blood Pressure 135/53 L 122/47 L 111/50 L Pulse Oximetry 95 94 93 Oxygen Delivery Oxygen Flow Rate Intake/Output Intake/Output: Intake & Output 01/15/23 01/16/23 01/17/23 01/18/23 23:59 23:59 23:59 23:59 Intake Total 450 Balance 450 Meds/Results Medications: Active Medications Generic Name Dose Route Start Last Admin Trade Name Freq PRN Reason Stop Dose Admin Acetaminophen 650 mg 01/18/23 11:00 Acetaminophen 325 Mg Tablet PO Q6H PRN Mild Pain (1-3) or Fever Hydrocodone Bitart/Acetaminophen 1 tab 01/18/23 11:00 Hydrocodone/Acetaminophen (*Crx) 5-325 Mg Tablet PO Q3H PRN Pain Rated 4-6 Al Hydrox/Mg Hydrox/Simethicone 30 ml 01/18/23 11:00 Mag Hydrox/Al Hydrox/Simeth 30 Ml Udc PO Q6H PRN Indigestion Amlodipine Besylate 5 mg 01/18/23 11:00 Amlodipine Besylate 5 Mg Tablet PO DAILY UMU Aspirin 81 mg 01/19/23 08:00 Aspirin 81 Mg Chewable Tablet PO DAILY@0800 UMU Atorvastatin Calcium 20 mg 01/18/23 21:00 Atorvastatin 20 Mg Tablet PO HS UMU Calcium Acetate 667 mg 01/19/23 09:00 Calcium Acetate 667 Mg Tablet PO QAM UMU Famotidine 20 mg 01/18/23 21:00 Famotidine 20 Mg Tablet PO Q12HR UMU Sodium Chloride 1,000 mls @ 75 mls/hr 01/18/23 11:00 Normal Saline Iv IV CONT .[id number] UMU Cefazolin Sodium 1 gm in 50 mls @ 100 mls/hr 01/18/23 16:00 Ancef 1 Gm/Ns 50 Ml IVPB 01/19
--- NOTE | 2023-01-18 13:22 | PM.IMCN ---
Assessment and Plan Assessment and plan (1) Type 2 diabetes mellitus: Qualifiers: Diabetes mellitus coutierier insulin use: without coutierier use Diabetes mellitus complication status: without complication Qualified Code(s): E11.9 - Type 2 diabetes mellitus without complications Code(s): E11.9 - Type 2 diabetes mellitus without complications Status: Acute (2) Hypertension: Qualifiers: Hypertension type: primary hypertension Qualified Code(s): I10 - Essential (primary) hypertension Code(s): I10 - Essential (primary) hypertension Status: Acute (3) S/P hip hemiarthroplasty: Code(s): Z96.649 - Presence of unspecified artificial hip joint Status: Acute Plan Problem List 1. diabetes, type 2 hypoglycemia protocol POC blood glucose ACHS correct regimen ordered - low dose TIDWM and HS A1C 6.2 on 01/05/23 continue home metformin 2. hypertension continue home amlodipine, lisinopril monitor BP 3. s/p hip hemiarthroplasty, right no immediate post-op complications ortho managing santamaria in place PT/OT eval and treat monitor labs PRN pain, nausea, and bowel regimen meds in place likely d/c tomorrow barring complications Chronic Conditions - HLD: continue atorvastatin - CAD: continue ASA - Glaucoma: Continue latanoprost eye drops - supplements: continue vitamin-D, calcium, multivitamin Diet: diabetic GI Prophylaxis: not indicated DVT Prophylaxis: SCDs, pharm not indicated due to postop status Lines: pIV Code Status: Full Code, confirmed on 01/18/2023 with at bedside. HPI Date of Consult Consult date: 01/18/23 Requesting Physician: Rob Gupta MD Primary Care Provider: Nilson Flynn MD Consult Narrative Reason for consult: Med Managment Narrative: Jamaal Romano is a 72 year old male presented here for a right hip hemiarthroplasty. Patient presented here for a right hip hemiarthroplasty status post right hip fixation with subsequent avascular necrosis of the femoral head with degenerative changes. Patient originally injured right hip 3 years ago. States he was working on a motorcycle when he tripped, fell and fractured his R hip. Original surgery performed here. States that he initially had some pain with lateral movement of his right leg post-surgery but discomfort was manageable. However this past July he was replacing his deck and he believes he exacerbated the joint. Pain then became more constant v. intermittent previously. Patient failed cortisone injections and self-directed exercises/therapy. Has had to use a cane intermittently over the past few years, now constant for the past 3-4 weeks. Patient elected for surgical management. Patient otherwise states that he feels well. No issues with medications or comorbidities per patient report. States his last A1C over the summer was 6.6. Diabetes is managed by his primary. Currently on oral metformin without complications or bothersome side effects. No other concerns or complaints. Review of Systems Review of Systems: All systems reviewed & are unremarkable except as noted in HPI and below PMFSH Past Medical History Medical History Arthritis of right hip Avascular necrosis of right femoral head Bilateral carotid bruits Chronic kidney disease, stage 3 Baseline creatinine is around 1.60. Colon polyps Coronary artery disease Status post 4 vessel bypass. Diverticulosis of large intestine without hemorrhage Erectile dysfunction Glaucoma History of kidney stones HLD (hyperlipidemia) Hypertension Osteopenia Osteoporosis Subcapital fracture of right hip Type 2 diabetes mellitus Wears glasses Surgical History Surgical History History of cholecystectomy History of four vessel coronary artery bypass graft (~2001) S/P hip hemiarthroplasty
[2023-01-18] MEDS: HYDROcodone/acetaminophen (*CRX) 5-325 MG TABLET 1 TAB PO ×2 (13:32→20:51)
[2023-01-18] MEDS: ceFAZolin 1 GM/NS 50 ML 1 GM/50 ML BAG IVPB ×2 (15:24→23:37)
[2023-01-18] MEDS: SENNA/DOCUSATE SODIUM TABLET 2 TAB PO (16:49)
[2023-01-18] MEDS: amLODIPine BESYLATE 5 MG TABLET PO (16:50)
[2023-01-18 17:09] LABS: Glucose Point of Care 245 mg/dl (65-105)
[2023-01-18] MEDS: metFORMIN HCL XR 500 MG TAB.SR.24H 1000 MG PO (17:17)
[2023-01-18] MEDS: FAMOTIDINE 20 MG TABLET PO (20:47)
[2023-01-18] MEDS: ATORVASTATIN 20 MG TABLET PO (20:47)
[2023-01-18] MEDS: LATANOPROST 0.005% OP SOLN 2.5 ML BTL 1 DROP EACH EYE (20:48)
[2023-01-18 21:10] LABS: Glucose Point of Care 221 mg/dl (65-105)
--- NOTE | 2023-01-18 21:32 | PC.NURSE ---
PT REFUSES 2100 NOVOLOG, WILL RECHECK ACCUCHECK AT MIDNIGHT, DR WALLER
[2023-01-18] MEDS: MORPHINE SULFATE (*CRX) 2 MG/ML INJ IV PUSH (23:36)
[2023-01-18 23:48] LABS: Glucose Point of Care 234 mg/dl (65-105)
[2023-01-19 05:20] VITALS: BP 144/61; PULSE 70; RESP 16; TEMP 37; O2SAT 97
[2023-01-19 06:06] LABS: Basophils Percent Auto 0.2 % (0.2-1.2); Eosinophils Percent Auto 0.1 % (0-4.4); Hemoglobin 11.6 g/dL (14.0-18.0); Immature Granulocyte Absolute 0.04 K/mm3 (0.00-0.031); Immature Granulocyte Percent A 0.3 % (0-0.5); Lymphocytes Absolute Auto 1.01 K/mm3 (0.9-3.2); Lymphocytes Percent Auto 7.9 % (18.3-44.2); Mean Corpuscular HGB Conc 33.1 g/dl (32-36); Mean Corpuscular Hemoglobin 30.1 pg (26-34); Mean Corpuscular Volume 90.9 fl (80-100); Mean Platelet Volume 10.7 fl (7.4-10.4); Monocytes Absolute Auto 1.6 K/mm3 (0.1-0.6); Monocytes Percent Auto 12.7 % (2.6-8.5); Neutrophils Absolute Auto 10.1 K/mm3 (1.3-6.7); Neutrophils Percent Auto 78.8 % (45.5-73.1); Platelet Count Result 179 k/mm3 (150-375); Red Blood Count 3.85 M/mm3 (4.6-6.20); Red Cell Distribution Width 12.9 % (11.5-14.5); White Blood Count 12.9 K/mm3 (4.5-10.0)
[2023-01-19 06:20] LABS: Anion Gap 8 mmol/L (8-16); Blood Urea Nitrogen 28 mg/dL (9-20); Calcium 9.2 mg/dL (8.4-10.2); Carbon Dioxide 26 mmol/L (22-30); Chloride 100 mmol/L (98-107); Estimated CRCL calculation 38 ml/min; Estimated Glomerular Filt Rate 46; Glucose 157 mg/dL (65-110); Potassium 4.6 mmol/L (3.4-5.0); Sodium 134 mmol/L (137-145)
--- NOTE | 2023-01-19 08:05 | PM.IMPN ---
Progress Note: A&P Assessment and Plan (1) S/P hip hemiarthroplasty: Code(s): Z96.649 - Presence of unspecified artificial hip joint Status: Acute Assessment and Plan: 01/18/23: no immediate post-op complications ortho managing santamaria in place PT/OT eval and treat monitor labs PRN pain, nausea, and bowel regimen meds in place likely d/c tomorrow barring complications 01/19/23: Patient is postop day 1 from a right hip removal of hardware, right hip hemiarthroplasty OR dressing clean dry and intact to the right hip Reports his pain 0/10 while lying in bed, reports 5 to 6/10 when moving around. Orthopedics is following, and made adjustments to pain medication regimen We will discontinue his Santamaria catheter PT and OT will see patient today Plan for discharge today after therapy (2) Type 2 diabetes mellitus: Qualifiers: Diabetes mellitus complication status: without complication Diabetes mellitus intermediate card tender insulin use: without alf use Qualified Code(s): E11.9 - Type 2 diabetes mellitus without complications Code(s): E11.9 - Type 2 diabetes mellitus without complications Status: Acute Assessment and Plan: 01/18/23: hypoglycemia protocol POC blood glucose ACHS correct regimen ordered - low dose TIDWM and HS A1C 6.2 on 01/05/23 continue home metformin 01/19/23: Blood sugars ranging 157-234 Continue with home metformin No change to current treatment plan (3) Hypertension: Qualifiers: Hypertension type: primary hypertension Qualified Code(s): I10 - Essential (primary) hypertension Code(s): I10 - Essential (primary) hypertension Status: Acute Assessment and Plan: 01/18/23: continue home amlodipine, lisinopril monitor BP 01/19/23: Blood pressures ranging 118/57 to 149/65 No change to current treatment plan Time Spent With Patient Time with patient: 15 - 25 minutes Subjective Date/time seen: 01/19/23 08:05 Interval history: Interval history: This is a 72 year old male with a history of right femoral neck fracture that was treated with a percutaneous pinning 3 years ago that developed avascular necrosis of the head with collape of the femoral neck. Orthopedics took patient to OR yesterday for right hip removal of hardware, right hip hemiarthroplasty. We were consulted for medical management. On examination today patient is alert oriented x4, he is lying in the bed, is at bedside. Vital signs have been stable, he is on room air, he is afebrile. He currently states that his pain is 0/10 while lying in the bed however whenever he is up moving around it jumped up to 5-6/10. His pain medication that he was receiving here in the hospital did not seem to alleviate his pain. He spoke to the orthopedic doctor about this and they are to change his pain medication upon discharge. He denies any fever, chills, nausea, vomiting, diarrhea, headache, chest pain, shortness of breath. Labs today reveal WBC 12.9, RBC 3.85, Hgb 11.6, Hct 35.0, Na+ 133, K+ 4.6, Chloride 100, BUN 28, creatinine 1.50, BG ranging 157-234. Patient is stable for discharge after physical therapy today. Review of Systems Review of Systems: All systems reviewed & are unremarkable except as noted in HPI and below Constitutional: Constitutional: Reports as per HPI and Reports no additional constitutional complaints Eyes: Eyes: Reports as per HPI and Reports no additional eye complaints ENT: Reports system reviewed and no additional complaints, except as documented and Reports as per HPI Cardiovascular: Cardiovascular: Reports as per HPI and Reports no additional cardiovascular complaints Respiratory: Respiratory: Reports as per HPI and Reports no additional respiratory complaints Gastrointestinal: Gastrointestinal: Reports as per HPI and Reports no additional gastrointestinal complaints Genitourinary: Genitourinary: Reports no additional male genit
[2023-01-19] MEDS: CHOLECALCIFEROL 1,000 UNITS TABLET 2000 UNITS PO (08:08)
[2023-01-19] MEDS: ASPIRIN 81 MG CHEWABLE TABLET PO (08:08)
[2023-01-19] MEDS: FAMOTIDINE 20 MG TABLET PO (08:08)
[2023-01-19] MEDS: lisinopriL 10 MG TABLET 30 MG PO (08:08)
[2023-01-19] MEDS: MULTIVITAMINS THERAPEUTIC TAB (*BKC) 1 TABLET PO (08:09)
[2023-01-19] MEDS: SENNA/DOCUSATE SODIUM TABLET 2 TAB PO ×2 (08:09→17:09)
[2023-01-19] MEDS: CALCIUM ACETATE 667 MG TABLET PO (08:09)
[2023-01-19] MEDS: HYDROcodone/acetaminophen (*CRX) 5-325 MG TABLET 1 TAB PO (08:09)
[2023-01-19] MEDS: ceFAZolin 1 GM/NS 50 ML 1 GM/50 ML BAG IVPB (08:09)
[2023-01-19 08:37] LABS: Glucose Point of Care 171 mg/dl (65-105)
[2023-01-19 09:02] VITALS: BP 118/57; PULSE 68; RESP 18; TEMP 36.2; O2SAT 99
--- NOTE | 2023-01-19 09:33 | PM.PNORT ---
Progress Note: A&P Assessment and Plan (1) Avascular necrosis of right femoral head: Code(s): M87.051 - Idiopathic aseptic necrosis of right femur Status: Acute Assessment and Plan: Postoperative Day 1 right hip hemiarthroplasty. PT/OT with weight-bearing as tolerated. Diabetic diet. Appreciate hospitalist consultation for medical management of diabetes, hypertension, coronary artery disease. Pain control not tolerating [place]. Will switch to oxycodone and plan discharge with oxycodone if doing better. DVT prophylaxis with aspirin. Plan for home with home health. Subjective Subjective Date/Time Seen: 01/19/23 09:33 Post Op day: 1 Principal diagnosis: RT hip AVN Interval history: right hip removal of hardware, right hip hemiarthroplasty. Awake and alert. Up in chair. Pain in right hip not controlled with [place]. Exam Const: General: healthy appearing and comfortable; No acute distress, in distress or confusion Orientation/consciousness: oriented to person, oriented to place, oriented to time and No confusion HENMT: Head: normal to inspection, normocephalic and atraumatic Eyes: Conjunctivae: conjunctivae normal Sclera: sclerae normal Neck: Neck: supple and nontender Resp: Effort & Inspection: normal respiratory effort and no audible wheezes Cardio: Rate: regular rate Rhythm: regular rhythm Skin: General skin exam: no rashes or lesions noted Neuro: General: oriented to person, oriented to place, oriented to time and No confusion Cranial nerves: Yes Normal hearing present Extrem: Right upper extremity: normal to inspection Left upper extremity: normal to inspection Right lower extremity: hip/thigh Details: tenderness Location: of the hip Location: anteriorly, swelling ( Mild) Location: at the hip, abnormal ROM Details: pain with active ROM during Details: with ABduction and with flexion, pain with resistance to Details: to ABduction and to flexion and with range as follows ( flexion 90, external rotation 30, internal rotation 20, abduction 40) and crepitus Location: at the hip; no deformity and no unusual warmth, lower leg ( Negative Homans sign), ankle Details: normal ROM ( dorsiflexion and plantar flexion intact) and foot Details: vascular exam Details: dorsalis pedis pulse present and normal capillary refill, tendon exam Details: active flexion normal and active extension normal and motor-sensory exam Details: light-touch normal Location: in all toes; no edema; no edema Left lower extremity: normal to inspection, ankle Details: normal ROM and foot Details: vascular exam Details: dorsalis pedis pulse present and normal capillary refill and motor-sensory exam light-touch normal in all toes; no edema Other: Right hip dressing in place. Clean and dry. Psych: Affect: normal affect Objective Data Vital Signs Vital Signs: Vital Signs - 24 hr 01/18/23 09:54 01/18/23 10:10 01/18/23 10:25 Temperature 97.7 F Pulse Rate 115 H 76 72 Respiratory Rate 16 14 12 Blood Pressure 150/66 H 146/70 H 127/56 L Pulse Oximetry 100 100 97 Oxygen Delivery Simple Face Mask Simple Face Mask Room Air Oxygen Flow Rate 8 8 01/18/23 10:40 01/18/23 10:55 01/18/23 11:10 Temperature 97.3 F L Pulse Rate 69 77 75 Respiratory Rate 12 12 12 Blood Pressure 128/56 L 126/56 L 135/53 L Pulse Oximetry 96 94 95 Oxygen Delivery Room Air Room Air Oxygen Flow Rate 01/18/23 11:25 01/18/23 11:55 01/18/23 13:25 Temperature 97.1 F L 97.3 F L Pulse Rate 74 77 Respiratory Rate 12 13 Blood Pressure 122/47 L 111/50 L Pulse Oximetry 94 93 Oxygen Delivery Room Air Oxygen Flow Rate 01/18/23 12:55 01/18/23 11:15 01/18/23 16:45 Temperature 97.4 F L 97.4 F L Pulse Rate 76 72 Respiratory Rate 14 16 15 Blood Pressure 118/54 L 120/86 Pulse Oximetry 94 94 94 Oxygen Delivery Room Air Oxygen Flow Rate 01/18/23 20:56 01/18/23 23:46 01/19/23 05:20 Temperature 98.8 F 97.9 F 98.
--- NOTE | 2023-01-19 09:50 | PM.DS ---
DS: Admitting Diagnosis Discharge Date 01/19/2023 Admitting Diagnosis right hip avascular necrosis femoral head DS: Discharge Diagnosis Discharge Diagnosis (1) Avascular necrosis of right femoral head: Code(s): M87.051 - Idiopathic aseptic necrosis of right femur Status: Acute Assessment and Plan: status post hemiarthroplasty. Home with home health. Dressing change instructions given. May shower. Weight bear as tolerated. Rehab exercises. Aspirin for DVT prophylaxis. Follow up in orthopedic office in 2.5 weeks (2) Type 2 diabetes mellitus: Qualifiers: Diabetes mellitus complication status: without complication Diabetes mellitus mcc insulin use: without mcc use Qualified Code(s): E11.9 - Type 2 diabetes mellitus without complications Code(s): E11.9 - Type 2 diabetes mellitus without complications Status: Acute Assessment and Plan: continue with medication regimen, follow-up Dr. Flynn as scheduled (3) Hypertension: Qualifiers: Hypertension type: primary hypertension Qualified Code(s): I10 - Essential (primary) hypertension Code(s): I10 - Essential (primary) hypertension Status: Acute Assessment and Plan: continue medications DS: Summary Hospital Course Reason for hospitalization: right hip femoral neck avascular necrosis. Hospital Course: 72-year-old 3 years status post right hip fracture. Complicated by avascular necrosis femoral head and problems with the orthopedic hardware. Underwent hardware removal and hemiarthroplasty right hip on 01/18/2023. Admitted to hospital for postoperative care. Hospitalist consultation for medical management. PT/OT with weight-bearing as tolerated. Pain controlled, tolerating oral diet, labs and vitals stable. Some difficulty with urinary retention following removal of the [place] catheter. Patient with history of urinary retention. Post void residuals noted to be around 200 cc. No symptoms of bladder distension or urgency. Patient able to be discharged with follow-up with primary care and possible referral to Urology. Cleared for discharge. Status at Discharge Cognitive/behavioral status at discharge: Alert and oriented x3 Functional status at discharge: uses cane/walker Overall status at discharge: patient is back to baseline Time Spent with Patient Time attestation: Total time spent providing and/or coordinating discharge services: Exam Const: General: healthy appearing and comfortable; No acute distress, in distress or confusion Orientation/consciousness: oriented to person, oriented to place, oriented to time and No confusion HENMT: Head: normal to inspection, normocephalic and atraumatic Eyes: Conjunctivae: conjunctivae normal Sclera: sclerae normal Neck: Neck: supple and nontender Resp: Effort & Inspection: normal respiratory effort and no audible wheezes Cardio: Rate: regular rate Rhythm: regular rhythm Skin: General skin exam: no rashes or lesions noted Neuro: General: oriented to person, oriented to place, oriented to time and No confusion Cranial nerves: Yes Normal hearing present Extrem: Right upper extremity: normal to inspection Left upper extremity: normal to inspection Right lower extremity: hip/thigh Details: tenderness Location: of the hip Location: anteriorly, swelling ( Mild) Location: at the hip, abnormal ROM Details: pain with active ROM during Details: with ABduction and with flexion, pain with resistance to Details: to ABduction and to flexion and with range as follows ( flexion 90, external rotation 30, internal rotation 20, abduction 40) and crepitus Location: at the hip; no deformity and no unusual warmth, lower leg ( Negative Homans sign), ankle Details: normal ROM ( dorsiflexion and plantar flexion intact) and foot Details: vascular exam Details: dorsalis pedis pulse present and normal capillary refill, tendon exam Details: active f
--- NOTE | 2023-01-19 10:03 | WPDANESPN ---
Anes - Prog Note Post-Op Date/Time: 01/19/23 10:03 Cardiovascular status: normal Respiratory status: normal Airway patency: baseline Mental status: baseline Post-Op hydration status: normal Vital Signs: Last Vital Signs Temp 36.2 C L 01/19/23 09:02 Pulse 68 01/19/23 09:02 Resp 18 01/19/23 09:02 BP 118/57 L 01/19/23 09:02 Pulse Ox 99 01/19/23 09:02 O2 Del Method Room Air 01/19/23 08:00 O2 Flow Rate 8 01/18/23 10:10 Pain Score (VAS): 05/26 I/O: Intake & Output 01/18/23 01/19/23 01/19/23 23:59 07:59 15:59 Intake Total 470 400 120 Output Total 300 1400 Balance 170 -1000 120 Laboratory Tests 01/19/23 05:17 01/19/23 05:17 01/18/23 01/18/23 01/18/23 11:30 17:06 21:00 WBC RBC Hgb Hct MCV MCH MCHC RDW Plt Count MPV Immature Gran % (Auto) Neut % (Auto) Lymph % (Auto) [place] % (Auto) Eos % (Auto) Baso % (Auto) Lymph # (Auto) [place] # (Auto) Eos # (Auto) Baso # (Auto) Abs Immat Gran (auto) Absolute Neuts (auto) Absolute Nucleated RBC Nucleated RBC % Sodium Potassium Chloride Carbon Dioxide Anion Gap BUN Creatinine Estim Creat Clear Calc Estimated GFR Glucose POC Capillary Glucose 202 H 245 H 221 H Calcium 01/18/23 01/19/23 01/19/23 23:39 05:17 08:34 WBC 12.9 H RBC 3.85 L Hgb 11.6 L Hct 35.0 L MCV 90.9 MCH 30.1 MCHC 33.1 RDW 12.9 Plt Count 179 MPV 10.7 H Immature Gran % (Auto) 0.3 Neut % (Auto) 78.8 H Lymph % (Auto) 7.9 L [place] % (Auto) 12.7 H Eos % (Auto) 0.1 Baso % (Auto) 0.2 Lymph # (Auto) 1.01 [place] # (Auto) 1.6 H Eos # (Auto) 0.0 Baso # (Auto) 0.0 Abs Immat Gran (auto) 0.04 H Absolute Neuts (auto) 10.1 H Absolute Nucleated RBC 0.0 Nucleated RBC % 0.0 Sodium 134 L Potassium 4.6 Chloride 100 Carbon Dioxide 26 Anion Gap 8 BUN 28 H Creatinine 1.50 H Estim Creat Clear Calc 38 Estimated GFR 46 L Glucose 157 H POC Capillary Glucose 234 H 171 H Calcium 9.2 Post-procedural complaints: none Patient Feedback: Patient satisfied with anesthetic care.
[2023-01-19 12:08] LABS: Glucose Point of Care 156 mg/dl (65-105)
[2023-01-19] MEDS: oxyCODONE/ACETAMINOPHEN (*CRX) 5-325 MG TABLET 1 TABLET PO ×2 (13:18→17:13)
[2023-01-19 14:11] VITALS: BP 127/44; PULSE 66; RESP 18; TEMP 36.3; O2SAT 100
[2023-01-19 17:09] LABS: Glucose Point of Care 165 mg/dl (65-105)
[2023-01-19] MEDS: metFORMIN HCL XR 500 MG TAB.SR.24H 1000 MG PO (17:09)
[2023-01-19] MEDS: amLODIPine BESYLATE 5 MG TABLET PO (17:10)
== END 2023-01-19 17:35 | disposition home health service (06) | DRG 470 ==
LOC: ANH2MED 11:04
PROVIDERS: Admitting Provider Orthopaedic Surgery; PCP Family Medicine; Visit Provider Orthopaedic Surgery
PROC: 0SRR01Z Replacement of Right Hip Joint, Femoral Surface with Metal Synthetic Substitute, Open Approach (ICD-10-PCS; principal; 2023-01-18 07:30)
PROC: 0SRR01Z Replacement of Right Hip Joint, Femoral Surface with Metal Synthetic Substitute, Open Approach (ICD-10-PCS; CPT 27125; 2023-01-18 07:30)
DX: M87.051 Idiopathic aseptic necrosis of right femur (principal); M16.11 Unilateral primary osteoarthritis, right hip; S72.011S Unspecified intracapsular fracture of right femur, sequela; E78.5 Hyperlipidemia, unspecified; E11.22 Type 2 diabetes mellitus with diabetic chronic kidney disease; H40.9 Unspecified glaucoma; I25.10 Atherosclerotic heart disease of native coronary artery without angina pectoris; I12.9 Hypertensive chronic kidney disease with stage 1 through stage 4 chronic kidney disease, or unspecified chronic kidney disease; M81.0 Age-related osteoporosis without current pathological fracture; N18.30 Chronic kidney disease, stage 3 unspecified; Z90.49 Acquired absence of other specified parts of digestive tract; Z95.1 Presence of aortocoronary bypass graft; Z87.891 Personal history of nicotine dependence; Z79.82 Long term (current) use of aspirin; Z79.84 Long term (current) use of oral hypoglycemic drugs
CPT/HCPCS: 36415; 73502; 80048; 80307; 81003; 82040; 82948; 83036; 85025; 85610; 85730; 86850; 86900; 86901; 87081; 93005; 97110; 97116; 97161; 97165; 97530; 97535; A9270; C1776; J0690; J1100; J1170; J2250; J2270; J2371; J2405; J2704; J3010; J7120

== ENCOUNTER 2023-07-05 10:30 | Outpatient (CLI) | payer MEDICARE, SELFPAY ==
--- NOTE | ~2023-07-05 | US_ITS ---
EXAMINATION: US carotid duplex BI DATE: 07/05/2023 13:04 INDICATION: Coronary artery disease. TECHNIQUE: Grayscale, color Doppler, and pulsed Doppler images of the cervical carotid arteries were obtained. The degree of vessel stenosis is placed in one of the following categories: normal, <50%, 5 0-69%, >=70% but less than near-occlusion, near-occlusion, or total occlusion. Note that percent sten osis relative to normal distal artery lumen diameter is indirectly measured from velocity measurement s as described by Jason, et al. Radiology 2003; 229:340-346. COMPARISON: None. FINDINGS: RIGHT: The right common carotid artery (CCA) peak systolic velocity (PSV) is 98 cm/s. The right internal car otid artery (ICA) PSV is 144 cm/s. The right ICA end-diastolic velocity (EDV) is 29 cm/s. The right I CA/CCA PSV ratio is 1.5. Grayscale and color Doppler images yield an estimate of 50-69% diameter redu ction from plaque in the ICA. The external carotid artery (ECA) PSV is 98 cm/s. There is antegrade fl ow in the right vertebral artery. LEFT: The proximal left CCA PSV is 25 cm/s with to and fro waveform with diastolic flow reversal. Negligibl e flow is seen within the distal left common carotid artery which appears to occlude before the bifur cation. There is reversal of flow within the left external carotid artery. The ECA PSV is 133 cm/s wi th low resistance diastolic flow. This appears resupply the left ICA. Grayscale and color Doppler rachid ges yield an estimate of <50% diameter reduction from plaque in the ICA. The left ICA PSV is 35 cm/s. The left ICA EDV is 10 cm/s. There is antegrade flow in the left vertebral artery. IMPRESSION: 1. 50-69% stenosis in the right internal carotid artery. 2. 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 Reviewed, dictated and finalized at location A. IMPRESSION: 1. 50-69% stenosis in the right internal carotid artery. 2. Complete occlusion of the distal left common carotid artery with reverse col lateral flow in the left external carotid artery supplying the left internal ca rotid artery with <50% stenosis in the left internal carotid artery.
== END 2023-07-05 10:31 | disposition home or self-care (01) ==
PROVIDERS: PCP Family Medicine; Visit Provider Internal Medicine Cardiovascular Disease
DX: I25.10 Atherosclerotic heart disease of native coronary artery without angina pectoris (principal); I65.21 Occlusion and stenosis of right carotid artery; I65.23 Occlusion and stenosis of bilateral carotid arteries
CPT/HCPCS: 93880

== ENCOUNTER 2023-11-06 11:08 | Outpatient (CLI) | payer MEDICARE, SELFPAY ==
--- NOTE | ~2023-11-06 | XR_ITS ---
XR toe 1st LT min 2V Ordering provider: Nilson Flynn MD History: . PAIN IN LEFT TOE, RED, INFLAMED 1ST TOE, HX GOUT . Comparison: None. FINDINGS: BONES: Comminuted fracture of the distal phalanx of the big toe. JOINT SPACES: Normal. SOFT TISSUES: Soft tissue swelling over the distal phalanx of the big toe. IMPRESSION: Comminuted fracture of the distal phalanx of the big toe. Possibility of underlying infection cannot be excluded. Reviewed, dictated and finalized at location A. IMPRESSION: Comminuted fracture of the distal phalanx of the big toe. Possibility of underl rickey infection cannot be excluded.
== END 2023-11-06 11:09 | disposition home or self-care (01) ==
PROVIDERS: PCP Family Medicine; Visit Provider Family Medicine
DX: M79.675 Pain in left toe(s) (principal); S92.422A Displaced fracture of distal phalanx of left great toe, initial encounter for closed fracture
CPT/HCPCS: 73660

== ENCOUNTER 2023-11-23 12:16 | Outpatient (CLI) | payer MEDICARE, SELFPAY ==
--- NOTE | ~2023-11-23 | MR_ITS ---
EXAMINATION: MR foot LT wo con DATE: 11/23/2023 12:52 INDICATION: Left great toe pain. Assess for osteomyelitis. TECHNIQUE: Magnetic resonance imaging (MRI) of the left fore/mid foot was performed without intraveno us contrast. Sequences included sagittal T1-weighted FSE, sagittal fluid sensitive FSE STIR, coronal PD-weighted FS FSE, coronal T1-weighted FSE, axial PD-weighted FS FSE, and axial PD-weighted FSE. COMPARISON: Radiographs dated 11/06/2023 FINDINGS: Bone alignment is normal. Small low signal intensity bone island at the head of the first metatarsal. There is normal bone marrow signal throughout with no fracture, reactive edema, osteitis or other pa thologic marrow replacing process. Mild polyarticular osteoarthritis involving multiple tarsal metata rsal, metatarsophalangeal and interphalangeal joints. Physiologic amount fluid in the joint spaces. N o joint effusions, tenosynovitis, abscess or other abnormal fluid collections. Visualized portion of the flexor and extensor tendons and intrinsic musculature of the foot are normal. Lisfranc ligament c omplex as well as the collateral ligament complex at the metatarsophalangeal joints are normal. There are several foci of susceptibility artifact along the skin surface at the plantar aspect of the foot . IMPRESSION: 1. Mild polyarticular osteoarthritis in the left mid and forefoot. Otherwise unremarkable study with no abscess, osteitis or other acute osseous abnormality. Reviewed, dictated and finalized at location A. IMPRESSION: 1. Mild polyarticular osteoarthritis in the left mid and forefoot. Otherwise un remarkable study with no abscess, osteitis or other acute osseous abnormality.
== END 2023-11-23 12:17 | disposition home or self-care (01) ==
LOC: GOSHIMG 12:16
PROVIDERS: PCP Family Medicine; Visit Provider Family Medicine
DX: M79.675 Pain in left toe(s) (principal); M19.072 Primary osteoarthritis, left ankle and foot
CPT/HCPCS: 73718

== ENCOUNTER 2024-03-04 07:52 | Outpatient (CLI) | payer MEDICARE, SELFPAY ==
--- NOTE | ~2024-03-04 | US_ITS ---
EXAMINATION: US aorta [facility] DATE: 03/04/2024 09:55 [employer] INDICATION: Former smoker TECHNIQUE: Grayscale, color Doppler, and pulsed Doppler images of the aorta and common iliac arteries were obtained. COMPARISON: None. FINDINGS: The proximal aorta measures 2.5 cm sagittal dimension. The mid aorta measures 1.5 cm sagittal dimensi on. The distal aorta measures 1.4 cm sagittal dimension. The iliac arteries are not well visualized d ue to bowel content. IMPRESSION: 1. Normal caliber aorta without aneurysm. Reviewed, dictated and finalized at location B. [employer]
== END 2024-03-04 07:53 | disposition home or self-care (01) ==
PROVIDERS: PCP Family Medicine; Visit Provider Internal Medicine Cardiovascular Disease
DX: Z87.891 Personal history of nicotine dependence (principal)
CPT/HCPCS: 76706